=== PATIENT | female | born 1990 | race Caucasian/White ===

== ENCOUNTER 2016-06-05 07:29 | Inpatient (IN) | payer OTHER ==
[2016-06-05] MEDS ORDERED: Lidocaine 1% MPF* 2 ML VIAL ONE (09:03)
[2016-06-05 09:58] LABS: Hematocrit 33 % (35-47); Hemoglobin 10.9 g/dl (12.0-16.0); Mean Corpuscular HGB Conc 33 g/dl (31-36); Mean Corpuscular Hemoglobin 28 pg (27-31); Mean Corpuscular Volume 86 fL (80-97); Mean Platelet Volume 11 um3 (7.4-10.4); Red Blood Count 3.85 10^6/ul (4.0-5.4); Red Cell Distribution Width 13 % (10.5-15); White Blood Count 7.6 10^3/ul (3.5-10.8)
[2016-06-05] MEDS ORDERED: OBEPIDURAL* 250 ML ONE (13:42)
[2016-06-05] MEDS ORDERED: fentaNYL* 50 MCG/ML 2 ML VIAL (100 MCG VIAL) ONE (13:42)
[2016-06-05] MEDS ORDERED: Phenylephrine IV* 40 MCG/ML 10 ML SYRINGE IV PUSH PRN ×2 (14:17)
[2016-06-05] MEDS ORDERED: Sodium Citrate/Citric Acid* 15 ML UDC PO PRN (14:17)
[2016-06-05] MEDS ORDERED: Famotidine TAB* 20 MG PO PRN (14:17)
[2016-06-05] MEDS ORDERED: OBEPIDURAL* 250 ML EPIDURAL SCH (15:00)
[2016-06-05] MEDS ORDERED: Oxytocin in LR* 20 UNITS/1,000 ML BAG IVPB ONE (15:58)
[2016-06-05] MEDS ORDERED: Dibucaine 1% 28.35 GM TUBE PR PRN (16:20)
[2016-06-05] MEDS ORDERED: Glycerin ADULT SUPP PR PRN (16:20)
[2016-06-05] MEDS ORDERED: Acetaminophen TAB* 325 MG PO PRN (16:20)
[2016-06-05] MEDS ORDERED: Witch Hazel PAD* JAR TOPICAL PRN (16:20)
[2016-06-05] MEDS ORDERED: Oxytocin in LR* 20 UNITS/1,000 ML BAG IVPB SCH (17:00)
[2016-06-05] MEDS ORDERED: Simethicone TAB* 80 MG TAB.CHEW PO SCH (17:30)
[2016-06-05] MEDS: Ibuprofen TAB* 600 MG PO PRN (18:28)
[2016-06-05] MEDS: Docusate CAP* 100 MG PO SCH (19:52)
[2016-06-06] MEDS: Ibuprofen TAB* 600 MG PO PRN ×3 (00:49→20:09)
[2016-06-06 07:28] LABS: Hematocrit 28 % (35-47); Hemoglobin 9.3 g/dl (12.0-16.0); Mean Corpuscular HGB Conc 33 g/dl (31-36); Mean Corpuscular Hemoglobin 28 pg (27-31); Mean Corpuscular Volume 86 fL (80-97); Mean Platelet Volume 12 um3 (7.4-10.4); Red Cell Distribution Width 14 % (10.5-15); White Blood Count 8.4 10^3/ul (3.5-10.8)
[2016-06-06] MEDS: Ferrous Gluconate TAB* 324 MG TAB PO SCH ×2 (09:32→20:09)
[2016-06-06] MEDS: Docusate CAP* 100 MG PO SCH ×3 (09:32→20:09)
[2016-06-06] MEDS ORDERED: Tetan/Diph/Pertus SYR(Tdap)* 0.5 ML SYR(BOOSTRIX) use SYR IM ONE (14:54)
[2016-06-07] MEDS: Ferrous Gluconate TAB* 324 MG TAB PO SCH (09:02)
[2016-06-07] MEDS: Docusate CAP* 100 MG PO SCH (09:02)
[2016-06-07 09:36] VITALS: BP 137/68
== END 2016-06-07 10:47 | disposition home or self-care (01) | DRG 560 ==
LOC: MCHOBOUT 07:29 → MCHOB 08:40
PROVIDERS: ADMIT Midwife; ATTEND Midwife
PROC: 10E0XZZ Delivery of Products of Conception, External Approach (ICD-10-PCS; principal; 2016-06-05)
PROC: 10907ZC Drainage of Amniotic Fluid, Therapeutic from Products of Conception, Via Natural or Artificial Opening (ICD-10-PCS; 2016-06-05)
PROC: 4A1HXCZ Monitoring of Products of Conception, Cardiac Rate, External Approach (ICD-10-PCS; 2016-06-05)
PROC: 0HQ9XZZ Repair Perineum Skin, External Approach (ICD-10-PCS; 2016-06-05)
DX: O99.214 Obesity complicating childbirth (principal); Z68.41 Body mass index [BMI] 40.0-44.9, adult; O71.82 Other specified trauma to perineum and vulva; O99.02 Anemia complicating childbirth; Z3A.38 38 weeks gestation of pregnancy; Z37.0 Single live birth; O75.89 Other specified complications of labor and delivery; G47.30 Sleep apnea, unspecified
CPT/HCPCS: 36415; 85025; 86850; 86900; 86901; 90715; A9270-GY; J3010

== ENCOUNTER 2016-06-18 08:14 | Emergency (ER) | payer OTHER ==
[2016-06-18 08:24] VITALS: BP 133/69
--- NOTE | 2016-06-19 17:59 | UC ---
tawny Solitario Timothy, scribed for Dolores Rahman MD on 06/18/16 at 0834 . Epistaxis Nasal HPI - HPI Summary HPI Summary: Tess Sweet is a 25 yo female presenting to [facility] with 5/10 sinus pressure and ache for the past 2 weeks. She also claims bilateral ear pain for the past 2 weeks with some hearing loss and pain in the right side of her face more recently. She states she is also experiencing productive cough. She denies fever , chills, n/v. Pt is 2 weeks post normal vaginal delivery, and is currently breast feeding. She states there has been exposure to RSV in her home. Her MHx includes exercise induced asthma, and former tobacco use. - History of Current Complaint Chief Complaint: UCRespiratory Stated Complaint: SINUS ISSUE Time Seen by Provider: 06/18/16 08:55 Hx Obtained From: Patient Hx Last Menstrual Period: 2 weeks post Onset/Duration: Gradual Onset, Lasting Weeks, Still Present Timing: Constant Severity Initially: Moderate Severity Currently: Moderate Pain Intensity: 5 Pain Scale Used: 0-10 Numeric Aggravating Factor(s): Nothing Alleviating Factor(s): Nothing Associated Signs And Symptoms: Positive: Sinus Pain Similar Episode/Dx as:: sinusitis - Allergies/Home Medications Allergies/Adverse Reactions: Allergies Allergy/AdvReac Type Severity Reaction Status Date / Time Oxycodone [From Percocet] Allergy Hives Verified 06/18/16 08:23 Penicillins [PCN] Allergy Hives Verified 06/18/16 08:23 PMH/Surg Hx/FS Hx/Imm Hx Respiratory History Of: Reports: Asthma - exercise induced GI/ History Of: Reports: Gall Bladder Disease - lap kassi. Neurological History Of: Denies: TIA, CVA, Dementia, Seizures, Migraine Psychological History Of: Reports: Anxiety, Depression - Surgical History Surgical History: Yes Surgery Procedure, Year, and Place: 2010-[facility]assi[place] [place] - Family History Known Family History: Positive: Cardiac Disease, Hypertension, Respiratory Disease, Other - ovarian CA - Social History Lives: With Family Alcohol Use: None Substance Use Type: None Smoking Status (MU): Former Smoker Type: Cigarettes Amount Used/How Often: 1/2 PPD Have You Smoked in the Last Year: Yes When Did the Patient Quit Smoking/Using Tobacco: 09/2013 Household Exposure Type: Cigarettes - Immunization History Most Recent Influenza Vaccination: 01/02/16 Most Recent Tetanus Shot: unsure Most Recent Pneumonia Vaccination: unknown Review of Systems Constitutional: Negative Skin: Negative Eyes: Negative ENT: Ear Ache - bilateral, Other - sinus pain/pressure Respiratory: Cough Cardiovascular: Negative Gastrointestinal: Negative Genitourinary: Negative Motor: Negative Neurovascular: Negative Musculoskeletal: Negative Neurological: Headache Psychological: Negative All Other Systems Reviewed And Are Negative: Yes Physical Exam Triage Information Reviewed: Yes Appearance: No Pain Distress, Well-Nourished, Ill-Appearing Vital Signs: Initial Vital Signs Temp 97 F 06/18/16 08:19 Pulse 86 06/18/16 08:19 Resp 16 06/18/16 08:19 BP 133/69 06/18/16 08:19 Pulse Ox 99 06/18/16 08:19 Vital Signs Reviewed: Yes Eyes: Positive: Conjunctiva Clear ENT: Positive: Hearing grossly normal, TM red - left. Negative: TMs normal - right is retracted Neck: Positive: Supple, Nontender Respiratory: Positive: Chest non-tender, Lungs clear, Normal breath sounds, No respiratory distress Cardiovascular: Positive: RRR, No Murmur, Pulses Normal, Brisk Capillary Refill Musculoskeletal: Positive: Strength Intact, ROM Intact Neurological: Positive: Alert, Muscle Tone Normal Psychological Exam: Normal Skin Exam: Normal Re-Evaluation - Re-Evaluation First Eval Re-Evaluation Time: 09:03 Change: Unchanged Comment: explained which antibiotics and OTC medications will be safe for Tx given that Pt is currently breast feeding her child. Epistaxis Nasal Course/Dx - Course Course Of Treatment: Tess Sweet is a 25 yo female [address] [facility] with sinus pain and pressure. After clinical examination, she will be discharged home with left otitis media and sinusitis as well as appropriate instructions. - Differential Dx/Diagnosis Differential Diagnosis/HQI/PQRI: Sinusitis, Other - OM, URI Provider Diagnoses: left otitis media. sinusitis Discharge - Discharge Plan Condition: Stable Disposition: HOME Prescriptions: Azithromycin TAB* [Zithromax TAB (Z-RJ) 250 mg #6 tabs] 2 tab PO .TODAY, THEN 1 DAILY #1 rj Patient Education Materials: Otitis Media (ED), Sinusitis (ED) Referrals: [facility] [place] [facility]IAN REFERRAL [Outside] - 2 Days Additional Instructions: Please follow up with the primary care physician provided regarding your visit to urgent care today. Return to urgent care or the emergency department with any new or recurring symptoms. The documentation as recorded by the tawny ayala Timothy accurately reflects the service I personally performed and the decisions made by , Dolores Rahman MD.
== END 2016-06-18 09:15 | disposition home or self-care (01) ==
LOC: UCEAST 08:14
DX: J32.9 Chronic sinusitis, unspecified (principal); H66.92 Otitis media, unspecified, left ear; Z90.49 Acquired absence of other specified parts of digestive tract; Z88.5 Allergy status to narcotic agent; Z88.0 Allergy status to penicillin; Z87.891 Personal history of nicotine dependence
CPT/HCPCS: 99212; G0463

== ENCOUNTER 2016-10-14 07:39 | Emergency (ER) | payer SELFPAY ==
[2016-10-14 07:45] VITALS: BP 116/70
--- NOTE | 2016-10-14 08:13 | UC ---
Respiratory Complaint HPI - HPI Summary HPI Summary: 4 DAYS OF COUGH AND CONGESTION. YESTERDAY DEVELOPED ST AND PAIN WITH SWALLOWING. REPORTS FEVER 103.8 2 DAYS AGO. - History of Current Complaint Chief Complaint: UCRespiratory Stated Complaint: SORE THROAT Time Seen by Provider: 10/14/16 07:59 Hx Obtained From: Patient Hx Last Menstrual Period: 09/19/16 Onset/Duration: Gradual Onset, Lasting Days, Still Present Timing: Constant Severity Initially: Moderate Severity Currently: Moderate Pain Intensity: 7 Pain Scale Used: 0-10 Numeric Aggravating Factors: Nothing Alleviating Factors: Nothing Associated Signs And Symptoms: Positive: Fever, Chills, URI, Nasal Congestion - Allergies/Home Medications Allergies/Adverse Reactions: Allergies Allergy/AdvReac Type Severity Reaction Status Date / Time Oxycodone [From Percocet] Allergy Hives Verified 06/18/16 08:23 Penicillins [PCN] Allergy Hives Verified 06/18/16 08:23 PMH/Surg Hx/FS Hx/Imm Hx Respiratory History: Asthma Other History Of: Negative For: HIV, Hepatitis B, Hepatitis C, Anticoagulant Therapy - Surgical History Surgical History: Yes Surgery Procedure, Year, and Place: 2010- [facility] [place] - Family History Known Family History: Positive: Cardiac Disease, Hypertension, Respiratory Disease, Other - ovarian CA - Social History Alcohol Use: None Substance Use Type: None Smoking Status (MU): Former Smoker Type: Cigarettes Amount Used/How Often: 1/2 PPD Have You Smoked in the Last Year: Yes When Did the Patient Quit Smoking/Using Tobacco: 09/2013 Household Exposure Type: Cigarettes - Immunization History Most Recent Influenza Vaccination: 01/02/16 Most Recent Tetanus Shot: unsure Most Recent Pneumonia Vaccination: unknown Review of Systems Constitutional: Fever, Chills, Fatigue ENT: Sore Throat, Nasal Discharge Respiratory: Negative Cardiovascular: Negative Gastrointestinal: Negative All Other Systems Reviewed And Are Negative: Yes Physical Exam Triage Information Reviewed: Yes Appearance: Well-Appearing, No Pain Distress, Well-Nourished Vital Signs: Initial Vital Signs Temp 100 F 10/14/16 07:42 Pulse 98 10/14/16 07:42 Resp 18 10/14/16 07:42 BP 116/70 10/14/16 07:42 Pulse Ox 99 10/14/16 07:42 Vital Signs Reviewed: Yes Eyes: Positive: Conjunctiva Clear ENT: Positive: Hearing grossly normal, Pharyngeal erythema, TMs normal, Tonsillar swelling - LEFT > RIGHT, Tonsillar exudate, Muffled/hoarse voice Neck: Positive: Supple, Tenderness @ - SPFL CERVICAL LAD, Enlarged Nodes @ - SPFL CERVICAL LAD Respiratory Exam: Normal Cardiovascular Exam: Normal Abdomen Description: Positive: Soft Musculoskeletal: Positive: No Edema Neurological: Positive: Alert Psychological: Positive: Age Appropriate Behavior Skin: Negative: rashes UC Diagnostic Evaluation - Laboratory O2 Sat by Pulse Oximetry: 99 Diagnostic Studies Comment: RAPID STREP NEGATIVE Respiratory Course/Dx - Differential Dx/Diagnosis Provider Diagnoses: ACUTE TONSILLITIS Discharge - Discharge Plan Condition: Stable Disposition: HOME Prescriptions: Clindamycin Cap(NF) [Cleocin 300 mg Cap(NF)] 300 mg PO Q6H #40 cap predniSONE TAB* [Deltasone TAB*] 40 mg PO DAILY #6 tab Patient Education Materials: Tonsillitis (ED) Referrals: No Primary Care Phys,NOPCP [Primary Care Provider] - Additional Instructions: RAPID STREP NEGATIVE. GIVEN YOUR CLINICAL PRESENTATION AND CONCERN FOR DEVELOPING PERITONSILLAR ABCESS/CELLULITIS WILL COVER WITH ABX. RETURN FOR RE-EVALUATION IF YOU ARE NOT IMPROVING EXPECTED. CALL THE NUMBER BELOW FOR ASSISTANCE IN ESTABLISHING WITH A PCP An additional resource available to assist in finding the appropriate physician for your health care needs is the [facility] ([facility]). You may contact them by calling [phone].
== END 2016-10-14 09:06 | disposition home or self-care (01) ==
LOC: UCEAST 07:39
DX: J03.90 Acute tonsillitis, unspecified (principal); J45.909 Unspecified asthma, uncomplicated; Z87.891 Personal history of nicotine dependence
CPT/HCPCS: 87651; 99212; G0463

== ENCOUNTER 2017-01-03 08:53 | Emergency (ER) | payer OTHER ==
[2017-01-03 09:17] VITALS: BP 121/69
--- NOTE | 2017-01-03 10:03 | UC ---
Throat Pain/Nasal Joselo HPI - HPI Summary HPI Summary: 26 yo female with sore throat since 2 AM feels feverish has myalgias exposed to 5 family members and friends who are being rxed for strep - History of Current Complaint Chief Complaint: UCGeneralIllness Stated Complaint: SORE THROAT Time Seen by Provider: 01/03/17 09:49 Hx Obtained From: Patient Hx Last Menstrual Period: 12/19/16 Onset/Duration: Sudden Onset, Lasting Hours Severity: Moderate Pain Intensity: 4 Pain Scale Used: 0-10 Numeric Cough: None Associated Signs & Symptoms: Positive: Fever - paloma - Allergies/Home Medications Allergies/Adverse Reactions: Allergies Allergy/AdvReac Type Severity Reaction Status Date / Time Oxycodone [From Percocet] Allergy Hives Verified 01/03/17 09:10 Penicillins [PCN] Allergy Hives Verified 01/03/17 09:10 PMH/Surg Hx/FS Hx/Imm Hx Previously Healthy: Yes Other History Of: Negative For: HIV, Hepatitis B, Hepatitis C, Anticoagulant Therapy - Surgical History Surgical History: Yes Surgery Procedure, Year, and Place: 2010-[facility] - Family History Known Family History: Positive: Cardiac Disease, Hypertension, Diabetes, Respiratory Disease, Other - ovarian CA - Social History Alcohol Use: Occasionally Substance Use Type: None Smoking Status (MU): Former Smoker Type: Cigarettes Amount Used/How Often: 1/2 PPD Have You Smoked in the Last Year: Yes When Did the Patient Quit Smoking/Using Tobacco: 09/2013 Household Exposure Type: Cigarettes - Immunization History Most Recent Influenza Vaccination: 01/02/16 Most Recent Tetanus Shot: unsure Most Recent Pneumonia Vaccination: unknown Review of Systems Constitutional: Fever - paloma Skin: Negative Eyes: Negative ENT: Sore Throat Respiratory: Negative Cardiovascular: Negative Gastrointestinal: Negative Genitourinary: Negative Motor: Negative Neurovascular: Negative Musculoskeletal: Myalgia Neurological: Headache Psychological: Negative Is Patient Immunocompromised?: No All Other Systems Reviewed And Are Negative: Yes Physical Exam Triage Information Reviewed: Yes Appearance: Well-Appearing, No Pain Distress, Well-Nourished Vital Signs: Initial Vital Signs Temp 98.1 F 01/03/17 09:11 Pulse 104 01/03/17 09:11 Resp 18 01/03/17 09:11 BP 121/69 01/03/17 09:11 Pulse Ox 100 01/03/17 09:11 Vital Signs Reviewed: Yes Eyes: Positive: Conjunctiva Clear ENT: Positive: Hearing grossly normal, Pharyngeal erythema, TMs normal, Tonsillar swelling, Tonsillar exudate, Other: - midline line uvula. Negative: Nasal congestion, Nasal drainage, Trismus, Muffled/hoarse voice Neck: Positive: Supple, Nontender Respiratory: Positive: Lungs clear, Normal breath sounds, No respiratory distress, No accessory muscle use Cardiovascular: Positive: RRR, No Murmur Musculoskeletal: Positive: ROM Intact, No Edema Neurological: Positive: Alert Psychological Exam: Normal Skin Exam: Normal Throat Pain/Nasal Course/Dx - Differential Dx/Diagnosis Provider Diagnoses: acute exudative tonsillitis Discharge - Discharge Plan Condition: Stable Disposition: HOME Prescriptions: Cephalexin CAP* [Keflex CAP*] 500 mg PO BID #20 cap Patient Education Materials: Tonsillitis (ED) Referrals: No Primary Care Phys,NOPCP [Primary Care Provider] - Additional Instructions: Given your history of exposure to multiple family members and children with strep I suspect you have it as well recheck in 3 days if not better recheck for new or worsening symptoms
== END 2017-01-03 10:10 | disposition home or self-care (01) ==
LOC: UCEAST 08:53
DX: J03.90 Acute tonsillitis, unspecified (principal); Z88.6 Allergy status to analgesic agent; Z88.0 Allergy status to penicillin; Z87.891 Personal history of nicotine dependence
CPT/HCPCS: 99212; G0463

== ENCOUNTER 2017-03-25 16:56 | Emergency (ER) | payer OTHER ==
[2017-03-25 18:19] LABS: Hematocrit 38 % (35-47); Hemoglobin 12.7 g/dl (12.0-16.0); Mean Corpuscular HGB Conc 34 g/dl (31-36); Mean Corpuscular Hemoglobin 31 pg (27-31); Mean Corpuscular Volume 92 fL (80-97); Mean Platelet Volume 9 um3 (7.4-10.4); Red Cell Distribution Width 13 % (10.5-15); White Blood Count 7.6 10^3/ul (3.5-10.8)
[2017-03-25 18:27] LABS: Urine Bacteria Absent (Absent); Urine Bilirubin Negative (Negative); Urine Glucose Negative (Negative); Urine Nitrite Negative (Negative)
[2017-03-25 18:34] LABS: Albumin 4.3 g/dL (3.2-5.2); BUN/Creatinine Ratio 8.2 (8-20); EGFR African American 124.9 (>60); EGFR Non-African American 97.1 (>60); Globulin 2.7 g/dL (2-4); Potassium 3.6 mmol/L (3.5-5.0); Total Bilirubin 0.3 mg/dL (0.2-1.0)
--- NOTE | 2017-03-25 19:13 | ED ---
GI/ HPI - HPI Summary HPI Summary: 26F presents with vaginal spotting today. LMP feb 10. She believes she is 5 week . She denies any abdominal pain. She denies any dizziness or palpitations. had three at home test pos. no fever, n/v/d. no dysuria. no flank pain. no vaginal discharge. two abortions where medical. . - History of Current Complaint Chief Complaint: EDGeneral Time Seen by Provider: 03/25/17 17:28 Stated Complaint: 6 WKS PREG/SPOTTING Hx Last Menstrual Period: 12/19/16 Pain Intensity: 0 - Allergy/Home Medications Allergies/Adverse Reactions: Allergies Allergy/AdvReac Type Severity Reaction Status Date / Time Oxycodone [From Percocet] Allergy Hives Verified 01/03/17 09:10 Penicillins [PCN] Allergy Hives Verified 01/03/17 09:10 PMH/Surg Hx/FS Hx/Imm Hx Endocrine/Hematology History: Denies: Hx Anticoagulant Therapy, Hx Diabetes, Hx Thyroid Disease Cardiovascular History: Denies: Hx Congestive Heart Failure, Hx Deep Vein Thrombosis, Hx Hypertension , Hx Myocardial Infarction, Hx Pacemaker/ICD Respiratory History: Reports: Hx Asthma - exercise induced, Hx Sleep Apnea - evaluation 12/2012, Other Respiratory Problems/Disorders - smoker, chronic congestion Denies: Hx Chronic Obstructive Pulmonary Disease (COPD), Hx Lung Cancer, Hx Pneumonia, Hx Pulmonary Embolism GI History: Reports: Hx Gall Bladder Disease - lap kassi. Denies: Hx Gastrointestinal Bleed, Hx Ulcer, Hx Urosepsis, Other GI Disorders History: Denies: Hx Kidney Stones, Hx Renal Disease, Other Problems/Disorders Neurological History: Denies: Hx Dementia, Hx Migraine, Hx Seizures, Hx Transient Ischemic Attacks (TIA) Psychiatric History: Reports: Hx Anxiety, Hx Depression Denies: Hx Schizophrenia, Hx Bipolar Disorder - Surgical History Surgery Procedure, Year, and Place: 2010-lap kassi-[facility] [place], [place] - Immunization History Date of Tetanus Vaccine: unsure Date of Influenza Vaccine: when she was preg Infectious Disease History: No Infectious Disease History: Denies: Hx Clostridium Difficile, Hx Hepatitis, Hx Human Immunodeficiency Virus (HIV), Hx of Known/Suspected MRSA, Hx Shingles, Hx Tuberculosis, Hx Known/ Suspected VRE, Hx Known/Suspected VRSA, History Other Infectious Disease, Traveled Outside the [place] in Last 30 Days - Family History Known Family History: Positive: Cardiac Disease, Hypertension, Diabetes, Respiratory Disease, Other - ovarian CA - Social History Alcohol Use: None Substance Use Type: Reports: None Smoking Status (MU): Former Smoker Type: Cigarettes Amount Used/How Often: 1/2 PPD Have You Smoked in the Last Year: Yes Review of Systems Negative: Fever Negative: Chest Pain Negative: Shortness Of Breath Positive: Other - vaginal bleeding. Negative: Abdominal Pain, Vomiting, Diarrhea, Nausea All Other Systems Reviewed And Are Negative: Yes Physical Exam Triage Information Reviewed: Yes Vital Signs On Initial Exam: Initial Vitals Temp Pulse Resp BP Pulse Ox 97.5 F 78 17 144/73 100 03/25/17 17:22 03/25/17 17:22 03/25/17 17:22 03/25/17 17:22 03/25/17 17:22 Vital Signs Reviewed: Yes Appearance: Positive: Well-Appearing Skin: Positive: Warm, Dry Head/Face: Positive: Normal Head/Face Inspection Eyes: Positive: Normal, Conjunctiva Clear Respiratory/Lung Sounds: Positive: Clear to Auscultation, Breath Sounds Present Cardiovascular: Positive: Normal, RRR Abdomen Description: Positive: Nontender, Soft Bowel Sounds: Positive: Present Musculoskeletal: Positive: Normal Neurological: Positive: Normal Psychiatric: Positive: Normal - Xenia Coma Scale Coma Scale Total: 15 Diagnostics - Vital Signs Vital Signs Temp Pulse Resp BP Pulse Ox 03/25/17 17:22 97.5 F 78 17 144/73 100 - Laboratory Lab Results: Lab Results 03/25/17 03/25/17 03/25/17 Range/Units 17:55 18:05 18:05 WBC (3.5-10.8) 10^3/ul RBC (4.0-5.4) 10^6/ul Hgb (12.0-16.0) g/dl Hct (35-47) % MCV (80-97) fL MCH (27-31) pg MCHC (31-36) g/dl RDW (10.5-15) % Plt Count (150-450) 10^3/ul MPV (7.4-10.4) um3 Neut % (Auto) (38-83) % Lymph % (Auto) (25-47) % Mcduffie % (Auto) (1-9) % Eos % (Auto) (0-6) % Baso % (Auto) (0-2) % Absolute Neuts (auto) (1.5-7.7) 10^3/ul Absolute Lymphs (auto) (1.0-4.8) 10^3/ul Absolute Monos (auto) (0-0.8) 10^3/ul Absolute Eos (auto) (0-0.6) 10^3/ul Absolute Basos (auto) (0-0.2) 10^3/ul Absolute Nucleated RBC 10^3/ul Nucleated RBC % INR (Anticoag Therapy) 0.86 (0.77-1.02) APTT 34.7 (26.0-36.3) seconds Sodium (133-145) mmol/L Potassium (3.5-5.0) mmol/L Chloride (101-111) mmol/L Carbon Dioxide (22-32) mmol/L Anion Gap (2-11) mmol/L BUN (6-24) mg/dL Creatinine (0.51-0.95) mg/dL Est GFR ( Amer) (>60) Est GFR (Non-Af Amer) (>60) BUN/Creatinine Ratio (8-20) Glucose (70-100) mg/dL Calcium (8.6-10.3) mg/dL Total Bilirubin (0.2-1.0) mg/dL AST (13-39) U/L ALT (7-52) U/L Alkaline Phosphatase (34-104) U/L Total Protein (6.4-8.9) g/dL Albumin (3.2-5.2) g/dL Globulin (2-4) g/dL Albumin/Globulin Ratio (1-3) Beta HCG, Quant mIU/mL Urine Color Yellow Urine Appearance Cloudy Urine pH 5.0 (5-9) Ur Specific [place] 1.023 (1.010-1.030) Urine Protein Negative (Negative) Urine Ketones Negative (Negative) Urine Blood Negative (Negative) Urine Nitrate Negative (Negative) Urine Bilirubin Negative (Negative) Urine Urobilinogen Negative (Negative) Ur Leukocyte Esterase Trace H (Negative) Urine WBC (Auto) Trace(0-5/hpf) (Absent) Urine RBC (Auto) Absent (Absent) Ur Squamous Epith Cells Present H (Absent) Urine Bacteria Absent (Absent) Urine Glucose Negative (Negative) Blood Type O Positive 03/25/17 03/25/17 Range/Units 18:05 18:05 WBC 7.6 (3.5-10.8) 10^3/ul RBC 4.10 (4.0-5.4) 10^6/ul Hgb 12.7 (12.0-16.0) g/dl Hct 38 (35-47) % MCV 92 (80-97) fL MCH 31 (27-31) pg MCHC 34 (31-36) g/dl RDW 13 (10.5-15) % Plt Count 212 (150-450) 10^3/ul MPV 9 (7.4-10.4) um3 Neut % (Auto) 58.5 (38-83) % Lymph % (Auto) 29.5 (25-47) % Mcduffie % (Auto) 6.5 (1-9) % Eos % (Auto) 4.7 (0-6) % Baso % (Auto) 0.8 (0-2) % Absolute Neuts (auto) 4.5 (1.5-7.7) 10^3/ul Absolute Lymphs (auto) 2.2 (1.0-4.8) 10^3/ul Absolute Monos (auto) 0.5 (0-0.8) 10^3/ul Absolute Eos (auto) 0.4 (0-0.6) 10^3/ul Absolute Basos (auto) 0.1 (0-0.2) 10^3/ul Absolute Nucleated RBC 0 10^3/ul Nucleated RBC % 0.1 INR (Anticoag Therapy) (0.77-1.02) APTT (26.0-36.3) seconds Sodium 136 (133-145) mmol/L Potassium 3.6 (3.5-5.0) mmol/L Chloride 105 (101-111) mmol/L Carbon Dioxide 26 (22-32) mmol/L Anion Gap 5 (2-11) mmol/L BUN 6 (6-24) mg/dL Creatinine 0.73 (0.51-0.95) mg/dL Est GFR ( Amer) 124.9 (>60) Est GFR (Non-Af Amer) 97.1 (>60) BUN/Creatinine Ratio 8.2 (8-20) Glucose 86 (70-100) mg/dL Calcium 9.0 (8.6-10.3) mg/dL Total Bilirubin 0.30 (0.2-1.0) mg/dL AST 15 (13-39) U/L ALT 12 (7-52) U/L Alkaline Phosphatase 64 (34-104) U/L Total Protein 7.0 (6.4-8.9) g/dL Albumin 4.3 (3.2-5.2) g/dL Globulin 2.7 (2-4) g/dL Albumin/Globulin Ratio 1.6 (1-3) Beta HCG, Quant 2037.00 mIU/mL Urine Color Urine Appearance Urine pH (5-9) Ur Specific [place] (1.010-1.030) Urine Protein (Negative) Urine Ketones (Negative) Urine Blood (Negative) Urine Nitrate (Negative) Urine Bilirubin (Negative) Urine Urobilinogen (Negative) Ur Leukocyte Esterase (Negative) Urine WBC (Auto) (Absent) Urine RBC (Auto) (Absent) Ur Squamous Epith Cells (Absent) Urine Bacteria (Absent) Urine Glucose (Negative) Blood Type Result Diagrams: 03/25/17 18:05 03/25/17 18:05 Lab Statement: Any lab studies that have been ordered have been reviewed, and results considered in the medical decision making process. GIGU Course/Dx - Course Course Of Treatment: 26F presents with vaginal spotting today. LMP oct 22. She believes she is 5 week . She denies any abdominal pain. She denies any dizziness or palpitations. had three at home test pos. no fever, n/v/d. no dysuria. no flank pain. no vaginal discharge. two abortions where medical. . nontender abdomen. hcg only 1999 so can not see anything u/ s. will have follow up in two days for repeat labs as could be miscarriage or early . patient understand and agrees with plan. - Diagnoses Differential Diagnoses - Female: Ectopic , , Urinary Tract Infection, Other - threatened Provider Diagnoses: Vaginal bleeding affecting early Discharge - Discharge Plan Condition: Good Disposition: HOME Patient Education Materials: Threatened Miscarriage (ED) Referrals: Tonia Dykes MD [Primary Care Provider] - Mehrdad Goodman MD [Medical Doctor] - Additional Instructions: The education provided is for your information. You may or may not have a miscarriage at this point. Follow up with OBGYN as will need repeat HCG level drawn to trend , have lab work done in 2 days Return to ED if develop severe abdominal pain, fever, severe bleeding with symptoms such as lightheadedness or any new or worsening symptoms
[2017-03-25 19:34] VITALS: BP 130/64
== END 2017-03-25 19:33 | disposition home or self-care (01) ==
LOC: ED 16:56
DX: O20.9 Hemorrhage in early pregnancy, unspecified (principal); Z3A.01 Less than 8 weeks gestation of pregnancy; Z87.891 Personal history of nicotine dependence
CPT/HCPCS: 36415; 80053; 81003; 81015; 84702; 85025; 85610; 85730; 86900; 86901; 87086; 87088; 99282

== ENCOUNTER 2017-04-07 10:25 | Emergency (ER) | payer OTHER ==
[2017-04-07] MEDS ORDERED: Acetaminophen TAB* 325 MG PO ONE (13:08)
[2017-04-07] MEDS ORDERED: Cyclobenzaprine TAB* 10 MG PO ONE (13:08)
--- NOTE | 2017-04-07 13:09 | ED ---
Neck Pain - History of Current Complaint Chief Complaint: EDNeckComplaint Stated Complaint: NECK PAIN Time Seen by Provider: 04/07/17 10:46 Hx Last Menstrual Period: 12/19/16 Pain Intensity: 10 - Allergies/Home Medications Allergies/Adverse Reactions: Allergies Allergy/AdvReac Type Severity Reaction Status Date / Time Oxycodone [From Percocet] Allergy Hives Verified 01/03/17 09:10 Penicillins [PCN] Allergy Hives Verified 01/03/17 09:10 PMH/Surg Hx/FS Hx/Imm Hx Endocrine/Hematology History: Denies: Hx Anticoagulant Therapy, Hx Diabetes, Hx Thyroid Disease Cardiovascular History: Denies: Hx Congestive Heart Failure, Hx Deep Vein Thrombosis, Hx Hypertension , Hx Myocardial Infarction, Hx Pacemaker/ICD Respiratory History: Reports: Hx Asthma - exercise induced, Hx Sleep Apnea - evaluation 12/2012, Other Respiratory Problems/Disorders - smoker, chronic congestion Denies: Hx Chronic Obstructive Pulmonary Disease (COPD), Hx Lung Cancer, Hx Pneumonia, Hx Pulmonary Embolism GI History: Reports: Hx Gall Bladder Disease - lap kassi. Denies: Hx Gastrointestinal Bleed, Hx Ulcer, Hx Urosepsis, Other GI Disorders History: Denies: Hx Kidney Stones, Hx Renal Disease, Other Problems/Disorders Neurological History: Denies: Hx Dementia, Hx Migraine, Hx Seizures, Hx Transient Ischemic Attacks (TIA) Psychiatric History: Reports: Hx Anxiety, Hx Depression Denies: Hx Schizophrenia, Hx Bipolar Disorder - Surgical History Surgery Procedure, Year, and Place: 2010[facility] [place] - Immunization History Date of Tetanus Vaccine: unsure Date of Influenza Vaccine: 02/2017 Immunizations Up to Date: Yes Infectious Disease History: No Infectious Disease History: Denies: Hx Clostridium Difficile, Hx Hepatitis, Hx Human Immunodeficiency Virus (HIV), Hx of Known/Suspected MRSA, Hx Shingles, Hx Tuberculosis, Hx Known/ Suspected VRE, Hx Known/Suspected VRSA, History Other Infectious Disease, Traveled Outside the [place] in Last 30 Days - Family History Known Family History: Positive: Cardiac Disease, Hypertension, Diabetes, Respiratory Disease, Other - ovarian CA - Social History Alcohol Use: None Substance Use Type: Reports: None Smoking Status (MU): Former Smoker Type: Cigarettes Amount Used/How Often: 1/2 PPD Have You Smoked in the Last Year: Yes Physical Exam Vital Signs On Initial Exam: Initial Vitals Temp Pulse Resp BP Pulse Ox 97.7 F 76 16 144/92 100 04/07/17 10:27 04/07/17 10:27 04/07/17 10:27 04/07/17 10:27 04/07/17 10:27 - [place] Coma Scale Coma Scale Total: 15 Diagnostics - Vital Signs Vital Signs Temp Pulse Resp BP Pulse Ox 04/07/17 10:27 97.7 F 76 16 144/92 100 - Laboratory Lab Statement: Any lab studies that have been ordered have been reviewed, and results considered in the medical decision making process. Neck Course/Dx - Diagnoses Differential Dx/HQI/PQRI: Positive: Strain, Torticollis Provider Diagnoses: Cervical strain, acute Discharge - Discharge Plan Condition: Stable Disposition: HOME Patient Education Materials: Cervical Strain (ED) Referrals: Tonia Dykes MD [Primary Care Provider] - Additional Instructions: Continue taking tylenol. Heating pad, massage and rest. Wear collar if it gives relief. Follow up with PCP. Any new or worsening symptoms please seek medical attention promptly.
[2017-04-07 13:21] VITALS: BP 117/85
--- OUTSIDE RECORDS SUMMARY | 2017-04-08 11:48 | XMS REPORT ---
:1990 External Reference #:[id number] Author Organization [facility] Address [address] [address] Phone [phone] Care Team Providers Name Role Phone Tonia Dykes MD Primary Care Physician Unavailable Payers Type Date Identification Numbers Payment Provider Subscriber Commercial Effective: Policy Number: [id number] Total Care/Mcintyre Romain Sweet 2011 [facility] PayID: [id number] [address] [address] [place] [address] Problems Date Description Provider Status Onset: 01/16/2013 Obesity Esmer Ruffin M.D. Active Onset: 01/16/2013 Anxiety state Re Cruz M.D. Active Onset: 03/12/2017 Exercise-induced asthma Dar Everett M.D.,FACP Active Onset: 03/12/2017 Ex-smoker Dar Everett M.D.,FACP Active Onset: 03/12/2017 Gestational diabetes mellitus Dar Everett M.D.,FACP Active Note: h/o Onset: 03/12/2017 Obstructive sleep apnea Dar Everett M.D.,FACP Active syndrome Onset: 01/16/2013 Tobacco user Esmer Ruffin M.D. Inactive Inactive: 03/12/2017 Onset: 01/16/2013 Sleep disorder Esmer Ruffin M.D. Inactive Inactive: 03/12/2017 Onset: 07/25/2011 test positive Re Cruz M.D. Resolved Resolved: 12/12/2012 Family History Date Family Member(s) Problem(s) Comments Children 1 Social History Type Date Description Comments Education Highest level completed, 8th 8th grade reading level, grade left school at 16 when asked to repeat 9th grade Education 2014 Ged Education Enrolled in 3 taking courses for nursing Marital Status ETOH Use Denies alcohol use Recreational Drug Use Denies Drug Use Smoking Patient is a current smoker, smokes every day Smoking pack a day Daily Caffeine and sodas Daily Caffeine drinks root beer Exercise Type/Frequency Does not exercise General Hx Text Allergies, Adverse Reactions, Alerts Date Description Reaction Status Severity Comments 03/22/2011 Penicillin Contact dermatitis active 05/11/2013 Percocet active face breaks out Medications Medication Date Status Form Strength Qnty SIG Indications Ordering Provider Ventolin HFA 12/11/ Active Aerosol 108(90Bas 1inha 1 to 2 J20.9 Hyun 2015 e) ler inhalations Varn, mcg/Act every 4 N.P. hours as needed No Active 12/11/ Hx Unknown Medications 2015 - 2015 Azithromycin 12/11/ Hx Tablets 250mg 6tabs two tabs day J20.9 Hyun 2016 - one, one Varn, 12/21/ daily till N.P. 2016 gone Fluticasone 05/17/ Hx Suspension 50mcg/Act 16uni 2 sprays H92.01 Hyun Propionate 2016 - ts each nostril Varn, 05/31/ daily until N.P. 2016 symptoms subside Nystatin 05/17/ Hx Suspension [id number] 16oz 4 B37.0 Hyun 2016 - t/ML milliliters Varn, 12/11/ four times a N.P. 2016 day, swish and swallow for 14 days No Active 05/11/ Hx Unknown Medications 2013 - 2015 Omeprazole 02/25/ Hx Capsules DR 40mg 30cap 1 po qd 789.06 Esmer 2012 - s Augustin 05/11/ M.D. 2013 No Active 01/16/ Hx Unknown Medications 2012 - 2012 No Active 12/12/ Hx Unknown Medications 2012 - 2012 Bupropion HCL 12/12/ Hx Tablets ER 150mg 30tab take 1 305.1 Esmer ER 2012 - 12HR s tablet daily Augustin 01/16/ M.D. 2012 Fluticasone 12/12/ Hx Suspension 50mcg/Act 16gm 1 spray each 786.2 Esmer Propionate 2013 - nostril Ruffin, 01/16/ daily as M.D. 2013 needed Permethrin 07/24/ Hx Lotion 1% 1unit apply once 132.0 Re Lice Treatment 2011 - to the head Cruz, 12/12/ M.D. 2013 / Hx Tablets 90tab once a day Unknown Complete 0000 - s 2012 Immunizations CPT Code Status Date Vaccine Lot # [id number] Given 05/02/2015 Influenza Virus Vaccine, Quadrivalent, Split, [id number] Preservative Free [id number] Given 02/25/2013 Flu Vaccine Split Virus Preservative Free For Indiv [id number] Older Vital Signs Date Vital Result Comment 03/12/2017 Weight 242.00 lb Heart Rate 102 /min BP Systolic Sitting 138 mmHg BP Diastolic Sitting 66 mmHg Body Temperature 99.0 F O2 % BldC Oximetry 98 % 12/12/2015 Weight 233.00 lb Heart Rate 84 /min BP Systolic Sitting 124 mmHg BP Diastolic Sitting 82 mmHg Respiratory Rate 15 /min Body Temperature 98.3 F O2 % BldC Oximetry 99 % 09/14/2015 Weight 242.00 lb Heart Rate 72 /min BP Systolic Sitting 122 mmHg BP Diastolic Sitting 90 mmHg Body Temperature 97.6 F O2 % BldC Oximetry 99 % 05/17/2015 Height 63.75 inches 5'3.75" Weight 243.00 lb Heart Rate 96 /min BP Systolic Sitting 122 mmHg BP Diastolic Sitting 76 mmHg Respiratory Rate 15 /min Body Temperature 98.9 F O2 % BldC Oximetry 98 % BMI (Body Mass Index) 42.0 kg/m2 05/02/2015 Height 63.75 inches 5'3.75" Weight 243.00 lb Heart Rate 116 /min BP Systolic Sitting 122 mmHg BP Diastolic Sitting 78 mmHg Body Temperature 98.8 F O2 % BldC Oximetry 96 % BMI (Body Mass Index) 42.0 kg/m2 03/07/2015 Height 63.75 inches 5'3.75" Weight 243.00 lb Heart Rate 76 /min BP Systolic Sitting 124 mmHg BP Diastolic Sitting 80 mmHg Respiratory Rate 15 /min Body Temperature 99.2 F O2 % BldC Oximetry 98 % BMI (Body Mass Index) 42.0 kg/m2 05/11/2013 Weight 233.00 lb Heart Rate 72 /min BP Systolic 110 mmHg BP Diastolic 62 mmHg 02/25/2013 Weight 233.00 lb Heart Rate 70 /min BP Systolic Sitting 122 mmHg BP Diastolic Sitting 78 mmHg Body Temperature 97.9 F 01/16/2013 Weight 232.00 lb Heart Rate 72 /min BP Systolic Sitting 120 mmHg BP Diastolic Sitting 76 mmHg Body Temperature 97.9 F 12/12/2012 Weight 232.00 lb Heart Rate 70 /min BP Systolic Sitting 118 mmHg BP Diastolic Sitting 64 mmHg Body Temperature 97.9 F 07/25/2011 Height 64.50 inches 5'4.50" Weight 214.25 lb BP Systolic Sitting 118 mmHg r BP Diastolic Sitting 62 mmHg r BMI (Body Mass Index) 36.2 kg/m2 03/22/2011 Height 64.50 inches 5'4.50" Weight 216.00 lb Heart Rate 72 /min BP Systolic Sitting 120 mmHg BP Diastolic Sitting 80 mmHg BMI (Body Mass Index) 36.5 kg/m2 Results Test Date Test Result H/L Range Note Urinalysis Profile 10/22/2015 Urine Color Terri Urine Appearance Cloudy Urine Specific Haslet 1.030 1.010-1.030 Urine pH 5.0 5-9 Urine Urobilinogen Negative Negative Urine Ketones Trace Negative Urine Protein 1+(30 mg/dL) Negative Urine Leukocytes 3+ Negative Urine Blood 1+ Negative Urine Nitrite Negative Negative Urine Bilirubin Negative Negative Urine Glucose Negative Negative Urine White Blood Cell 1+(6-10/hpf) Absent Urine Red Blood Cell 1+(3-5/hpf) Absent Urine Bacteria Absent Absent Urine Squamous Epithelial Cell Present Absent Urine Culture And 10/22/2015 Urine Culture SEE RESULT BELOW 1 Sensitivities CBC Auto Diff 10/22/2015 White Blood Count 7.3 10^3/uL 3.5-10.8 Red Blood Count 4.03 10^6/uL 4.0-5.4 Hemoglobin 12.4 g/dL 12.0-16.0 Hematocrit 38 % 35-47 Mean Corpuscular Volume 93 fL 80-97 Mean Corpuscular Hemoglobin 31 pg 27-31 Mean Corpuscular HGB Conc 33 g/dL 31-36 Red Cell Distribution Width 13 % 10.5-15 Platelet Count 169 10^3/uL 150-450 Mean Platelet Volume 10 um3 7.4-10.4 Abs Neutrophils 4.7 10^3/uL 1.5-7.7 Abs Lymphocytes 1.6 10^3/uL 1.0-4.8 Abs Monocytes 0.4 10^3/uL 0-0.8 Abs Eosinophils 0.5 10^3/uL 0-0.6 Abs Basophils 0 10^3/uL 0-0.2 Abs Nucleated RBC 0 10^3/uL Granulocyte % 64.9 % 38-83 Lymphocyte % 21.6 % Low 25-47 Monocyte % 5.9 % 1-9 Eosinophil % 7.0 % High 0-6 Basophil % 0.6 % 0-2 Nucleated Red Blood Cells % 0 Type & Screen 10/22/2015 Patient Blood Type O Positive Antibody Screen NEGATIVE Comp Metabolic Panel 10/22/2015 Sodium 136 mmol/L 133-145 Potassium 3.7 mmol/L 3.5-5.0 Chloride 107 mmol/L 101-111 Co2 Carbon Dioxide 23 mmol/L 22-32 Anion Gap 6 mmol/L 2-11 Glucose 92 mg/dL 70-100 Blood Urea Nitrogen 8 mg/dL 6-24 Creatinine 0.81 mg/dL 0.51-0.95 BUN/Creatinine Ratio 9.9 8-20 Calcium 8.9 mg/dL 8.6-10.3 Total Protein 6.7 g/dL 6.4-8.9 Albumin 3.9 g/dL 3.2-5.2 Globulin 2.8 g/dL 2-4 Albumin/Globulin Ratio 1.4 1-3 Total Bilirubin 0.40 mg/dL 0.2-1.0 Alkaline Phosphatase 59 U/L 34-104 Alt 16 U/L 7-52 Ast 16 U/L 13-39 Egfr Non- 86.9 >60 Egfr 111.7 >60 2 Laboratory test 10/22/2015 HCG 49439.00 mIU/mL 3 finding Laboratory test 10/14/2015 TSH (Thyroid Stim Horm) 2.61 ?IU/mL 0.34-5.60 4 finding Lipid Profile 10/14/2015 Triglycerides 76 mg/dL 5 (Trig/Chol/HDL) Cholesterol 146 mg/dL 6 HDL Cholesterol 36.7 mg/dL 7 LDL Cholesterol 94 mg/dL 8 Basic Metabolic Panel 10/14/2015 Sodium 135 mmol/L 133-145 Potassium 4.4 mmol/L 3.5-5.0 Chloride 105 mmol/L 101-111 Co2 Carbon Dioxide 26 mmol/L 22-32 Anion Gap 4 mmol/L 2-11 Glucose 84 mg/dL 70-100 Blood Urea Nitrogen 5 mg/dL Low 6-24 Creatinine 0.75 mg/dL 0.51-0.95 BUN/Creatinine Ratio 6.7 Low 8-20 Calcium 9.3 mg/dL 8.6-10.3 Egfr Non- 94.9 >60 Egfr 122.1 >60 9 Comp Metabolic Panel 10/13/2015 Sodium 136 mmol/L 133-145 10 Potassium 3.9 mmol/L 3.5-5.0 10 Chloride 105 mmol/L 101-111 10 Co2 Carbon Dioxide 27 mmol/L 22-32 10 Anion Gap 4 mmol/L 2-11 10 Glucose 94 mg/dL 70-100 10 Blood Urea Nitrogen 6 mg/dL 6-24 10 Creatinine 0.72 mg/dL 0.51-0.95 10 BUN/Creatinine Ratio 8.3 8-20 10 Calcium 9.6 mg/dL 8.6-10.3 10 Total Protein 6.3 g/dL Low 6.4-8.9 10 Albumin 4.1 g/dL 3.2-5.2 10 Globulin 2.2 g/dL 2-4 10 Albumin/Globulin Ratio 1.9 1-3 10 Total Bilirubin 0.30 mg/dL 0.2-1.0 10 Alkaline Phosphatase 67 U/L 34-104 10 Alt 22 U/L 7-52 10 Ast 21 U/L 13-39 10 Egfr Non- 99.5 >60 10 Egfr 128.0 >60 10, 11 Laboratory test finding 04/15/2015 Rapid Strep Molecular Negative Negative 12 Throat-Beta Strept SEE RESULT BELOW 13 Laboratory test finding 04/15/2015 Rapid Strep A SEE RESULT BELOW 14 Urinalysis Profile 12/15/2013 Urine Color Yellow Urine Appearance Cloudy Urine Specific Haslet 1.015 1.010-1.030 Urine pH 6.0 5-9 Urine Urobilinogen Negative Negative Urine Ketones Negative Negative Urine Protein Negative Negative Urine Leukocytes 2+ Negative Urine Blood 1+ Negative Urine Nitrite Negative Negative Urine Bilirubin Negative Negative Urine Glucose Negative Negative Urine White Blood Cell 1+(6-10/hpf) Absent Urine Red Blood Cell 1+(3-5/hpf) Absent Urine Bacteria Absent Absent Urine Squamous Epithelial Cell Present Absent Urine Culture And 12/15/2013 Urine Culture (SEE NOTE) 15 Sensitivities CBC Auto Diff 05/24/2013 White Blood Count 9.3 10^3/uL 4.8-10.8 Red Blood Count 4.35 10^6/uL 4.0-5.4 Hemoglobin 13.1 g/dL 12.0-16.0 Hematocrit 40 % 35-47 Mean Corpuscular Volume 92 fL 80-97 Mean Corpuscular Hemoglobin 30 pg 27-31 Mean Corpuscular HGB Conc 33 g/dL 31-36 Red Cell Distribution Width 13 % 10.5-15 Platelet Count 185 10^3/uL 150-450 Mean Platelet Volume 10 um3 7.4-10.4 Abs Neutrophils 6.7 10^3/uL 1.5-7.7 Abs Lymphocytes 1.8 10^3/uL 1.0-4.8 Abs Monocytes 0.5 10^3/uL 0-0.8 Abs Eosinophils 0.3 10^3/uL 0-0.6 Abs Basophils 0 10^3/uL 0-0.2 Abs Nucleated RBC 0 10^3/uL Granulocyte % 71.8 % 38-83 Lymphocyte % 19.0 % Low 25-47 Monocyte % 5.7 % 1-9 Eosinophil % 3.1 % 0-6 Basophil % 0.4 % 0-2 Nucleated Red Blood Cells % 0 Urine Culture And Sensitivities 05/24/2013 Urine Culture (SEE NOTE) 16 Laboratory test finding 05/24/2013 Serum Negative Negative 17 Comp Metabolic Panel 05/24/2013 Sodium 135 mmol/L 133-145 Potassium 3.9 mmol/L 3.5-5.0 Chloride 104 mmol/L 101-111 Co2 Carbon Dioxide 26.0 mmol/L 22-32 Anion Gap 5.0 mmol/L 2-11 Glucose 88 mg/dL 70-100 Blood Urea Nitrogen 8 mg/dL 6-24 Creatinine 0.80 mg/dL 0.50-1.40 BUN/Creatinine Ratio 10.0 8-20 Calcium 9.0 mg/dL 8.1-9.9 Total Protein 6.7 g/dL 6.2-8.1 Albumin 4.1 g/dL 3.6-5.4 Globulin 2.6 g/dL 2-4 Albumin/Globulin Ratio 1.6 1-3 Total Bilirubin 0.6 mg/dL 0.4-1.5 Alkaline Phosphatase 78 U/L 50-176 Alt 24 U/L 14-54 Ast 22 U/L 12-42 Egfr Non- 90.5 >60 Egfr 116.4 >60 18 Laboratory test finding 05/24/2013 Lipase 19 U/L Low 22-51 C Reactive Protein < 0.5 mg/dL Less than 0.5 Urine Microscopic 05/24/2013 Urine WBC 1+ (<10 /hpf) None Seen Urine Mucus Present /lpf Absent Urine Epithelial Cells 3+ Squamous /hpf None Seen Bacteria Urine 2+ None Seen Urinalysis 05/24/2013 Urine Color Yellow Urine Appearance Clear Urine Specific Haslet 1.016 1.010-1.030 Urine Esterase 1+ Negative Urine Nitrate Negative Negative Urine Urobilinogen Negative E.U./dL Negative Urine Protein Negative mg/dL Negative Urine pH 5.5 5-9 Urine Blood Negative Negative Urine Ketones Negative mg/dL Negative Urine Bilirubin Negative Negative Urine Glucose Negative mg/dL Negative Laboratory test finding 05/11/2013 Test Urine neg Laboratory test finding 01/12/2013 Lipase 23 U/L 22-51 C Reactive Protein 0.5 mg/dL Less than 0.5 Serum Negative Negative 19 Urinalysis 01/12/2013 Urine Color Yellow Urine Appearance Clear Urine Specific Haslet 1.024 1.010-1.030 Urine Esterase 1+ Negative Urine Nitrate Negative Negative Urine Urobilinogen Negative E.U./dL Negative Urine Protein Negative mg/dL Negative Urine pH 5.5 5-9 Urine Blood Negative Negative Urine Ketones Negative mg/dL Negative Urine Bilirubin Negative Negative Urine Glucose Negative mg/dL Negative Urine Microscopic 01/12/2013 Urine WBC 1+ (<10 /hpf) None Seen Urine RBC None Seen None Seen Urine Mucus Present /lpf Absent Urine Epithelial Cells 2+ Squamous /hpf None Seen Bacteria Urine None Seen None Seen Urine Culture And 01/12/2013 Urine Culture (SEE NOTE) 20 Sensitivities CBC Auto Diff 01/12/2013 White Blood Count 12.0 10^3/uL High 4.8-10.8 Red Blood Count 4.33 10^6/uL 4.0-5.4 Hemoglobin 13.3 g/dL 12.0-16.0 Hematocrit 40 % 35-47 Mean Corpuscular Volume 93 fL 80-97 Mean Corpuscular Hemoglobin 31 pg 27-31 Mean Corpuscular HGB Conc 33 g/dL 31-36 Red Cell Distribution Width 13 % 10.5-15 Platelet Count 199 10^3/uL 150-450 Mean Platelet Volume 10 um3 7.4-10.4 Abs Neutrophils 9.1 10^3/uL High 1.5-7.7 Abs Lymphocytes 1.8 10^3/uL 1.0-4.8 Abs Monocytes 0.7 10^3/uL 0-0.8 Abs Eosinophils 0.4 10^3/uL 0-0.6 Abs Basophils 0.1 10^3/uL 0-0.2 Abs Nucleated RBC 0.01 10^3/uL Granulocyte % 75.5 % 38-83 Lymphocyte % 14.9 % Low 25-47 Monocyte % 5.6 % 1-9 Eosinophil % 3.4 % 0-6 Basophil % 0.6 % 0-2 Nucleated Red Blood Cells % 0.1 Comp Metabolic Panel 01/12/2013 Sodium 135 mmol/L 133-145 Potassium 3.8 mmol/L 3.5-5.0 Chloride 108 mmol/L 101-111 Co2 Carbon Dioxide 24.0 mmol/L 22-32 Anion Gap 3.0 mmol/L 2-11 Glucose 100 mg/dL 70-100 Blood Urea Nitrogen 6 mg/dL 6-24 Creatinine 0.60 mg/dL 0.50-1.40 BUN/Creatinine Ratio 10.0 8-20 Calcium 8.8 mg/dL 8.1-9.9 Total Protein 6.8 g/dL 6.2-8.1 Albumin 3.9 g/dL 3.6-5.4 Globulin 2.9 g/dL 2-4 Albumin/Globulin Ratio 1.3 1-3 Total Bilirubin 0.6 mg/dL 0.4-1.5 Alkaline Phosphatase 74 U/L 50-176 Alt 18 U/L 14-54 Ast 20 U/L 12-42 Egfr Non- 126.2 >60 Egfr 162.3 >60 21 CBC Auto Diff 12/29/2012 White Blood Count 9.0 10^3/uL 4.8-10.8 Red Blood Count 4.38 10^6/uL 4.0-5.4 Hemoglobin 13.1 g/dL 12.0-16.0 Hematocrit 40 % 35-47 Mean Corpuscular Volume 92 fL 80-97 Mean Corpuscular Hemoglobin 30 pg 27-31 Mean Corpuscular HGB Conc 32 g/dL 31-36 Red Cell Distribution Width 13 % 10.5-15 Platelet Count 218 10^3/uL 150-450 Mean Platelet Volume 10 um3 7.4-10.4 Abs Neutrophils 5.3 10^3/uL 1.5-7.7 Abs Lymphocytes 2.7 10^3/uL 1.0-4.8 Abs Monocytes 0.5 10^3/uL 0-0.8 Abs Eosinophils 0.4 10^3/uL 0-0.6 Abs Basophils 0.1 10^3/uL 0-0.2 Abs Nucleated RBC 0 10^3/uL Granulocyte % 58.9 % 38-83 Lymphocyte % 29.8 % 25-47 Monocyte % 5.7 % 1-9 Eosinophil % 4.9 % 0-6 Basophil % 0.7 % 0-2 Nucleated Red Blood Cells % 0 Inr/Protime 12/29/2012 Inr 0.91 0.87-0.97 Comp Metabolic Panel 12/29/2012 Sodium 137 mmol/L 133-145 Potassium 3.8 mmol/L 3.5-5.0 Chloride 105 mmol/L 101-111 Co2 Carbon Dioxide 25.0 mmol/L 22-32 Anion Gap 7.0 mmol/L 2-11 Glucose 90 mg/dL 70-100 Blood Urea Nitrogen 6 mg/dL 6-24 Creatinine 0.80 mg/dL 0.50-1.40 BUN/Creatinine Ratio 7.5 Low 8-20 Calcium 9.3 mg/dL 8.1-9.9 Total Protein 7.1 g/dL 6.2-8.1 Albumin 4.2 g/dL 3.6-5.4 Globulin 2.9 g/dL 2-4 Albumin/Globulin Ratio 1.4 1-3 Total Bilirubin 0.4 mg/dL 0.4-1.5 Alkaline Phosphatase 91 U/L 50-176 Alt 14 U/L 14-54 Ast 17 U/L 12-42 Egfr Non- 90.5 >60 Egfr 116.4 >60 22 Laboratory test finding 12/29/2012 Lactic Acid 0.9 mmol/L 0.5-1.6 Lipase 20 U/L Low 22-51 C Reactive Protein < 0.5 mg/dL Less than 0.5 Serum Negative Negative 23 Urine Culture And 12/29/2012 Urine Culture (SEE NOTE) 24 Sensitivities Urine Microscopic 12/29/2012 Urine WBC 1+ (<10 /hpf) None Seen Urine RBC 1+ (<3 /hpf) None Seen Urine Epithelial Cells 2+ Squamous /hpf None Seen Bacteria Urine 1+ None Seen Urinalysis 12/29/2012 Urine Color Yellow Urine Appearance Clear Urine Specific Haslet 1.014 1.010-1.030 Urine Esterase 2+ Negative Urine Nitrate Negative Negative Urine Urobilinogen Negative E.U./dL Negative Urine Protein Negative mg/dL Negative Urine pH 8.0 5-9 Urine Blood Negative Negative Urine Ketones Negative mg/dL Negative Urine Bilirubin Negative Negative Urine Glucose Negative mg/dL Negative CBC Auto Diff 11/03/2012 White Blood Count 10.6 10^3/uL 4.8-10.8 Red Blood Count 4.02 10^6/uL 4.0-5.4 Hemoglobin 12.4 g/dL 12.0-16.0 Hematocrit 37 % 35-47 Mean Corpuscular Volume 93 fL 80-97 Mean Corpuscular Hemoglobin 31 pg 27-31 Mean Corpuscular HGB Conc 33 g/dL 31-36 Red Cell Distribution Width 13 % 10.5-15 Platelet Count 199 10^3/uL 150-450 Mean Platelet Volume 10 um3 7.4-10.4 Abs Neutrophils 7.9 10^3/uL High 1.5-7.7 Abs Lymphocytes 1.7 10^3/uL 1.0-4.8 Abs Monocytes 0.6 10^3/uL 0-0.8 Abs Eosinophils 0.3 10^3/uL 0-0.6 Abs Basophils 0 10^3/uL 0-0.2 Abs Nucleated RBC 0 10^3/uL Granulocyte % 74.9 % 38-83 Lymphocyte % 16.5 % Low 25-47 Monocyte % 5.9 % 1-9 Eosinophil % 2.4 % 0-6 Basophil % 0.3 % 0-2 Nucleated Red Blood Cells % 0 Comp Metabolic Panel 11/03/2012 Sodium 136 mmol/L 133-145 Potassium 3.8 mmol/L 3.5-5.0 Chloride 108 mmol/L 101-111 Co2 Carbon Dioxide 22.0 mmol/L 22-32 Anion Gap 6.0 mmol/L 2-11 Glucose 92 mg/dL 70-100 Blood Urea Nitrogen 5 mg/dL Low 6-24 Creatinine 0.60 mg/dL 0.50-1.40 BUN/Creatinine Ratio 8.3 8-20 Calcium 9.1 mg/dL 8.1-9.9 Total Protein 7.1 g/dL 6.2-8.1 Albumin 4.1 g/dL 3.6-5.4 Globulin 3.0 g/dL 2-4 Albumin/Globulin Ratio 1.4 1-3 Total Bilirubin 0.6 mg/dL 0.4-1.5 Alkaline Phosphatase 72 U/L 50-176 Alt 15 U/L 14-54 Ast 21 U/L 12-42 Egfr Non- 126.2 >60 Egfr 162.3 >60 25 Laboratory test 11/03/2012 C Reactive Protein 1.0 mg/dL High Less than 0.5 finding Throat-Beta Strept 09/12/2012 Throat Beta Strep (SEE NOTE) 26 Culture Rapid Influenza A B 06/16/2012 Rapid Influenza A (SEE NOTE) 27 Antigen B Antigen Laboratory test 07/25/2011 TSH 2.65 MIU/ML 0.34-5.60 finding Comp Metabolic Panel 07/25/2011 Sodium 135 mmol/L 135-145 Potassium 3.9 mmol/L 3.5-5.0 Chloride 104 mmol/L 101-111 Co2 (Carbon Dioxide) 24.0 mmol/L 22-32 Anion Gap 7.0 mmol/L 2-11 28 Glucose 64 mg/dL Low 70-100 BUN 6 mg/dL 6-24 Creatinine 0.7 mg/dL 0.50-1.40 One Over Creatinine 1.42 BUN/Creatinine Ratio 8.6 8-20 Calcium 8.7 mg/dL 8.1-9.9 Total Protein 5.4 GM/DL Low 6.2-8.1 Albumin 3.0 GM/DL Low 3.6-5.4 Globulin 2.4 GM/DL 2-4 Albumin/Globulin Ratio 1.3 1-3 Bilirubin Total 0.3 mg/dL Low 0.4-1.5 29 Alkaline Phosphatase 76 U/L 40-122 Alt (SGPT) 14 U/L 14-54 Ast (Sgot) 15 U/L 12-42 eGFR Non- 107.8 > 60 eGFR 138.6 > 60 30 Drug Abuse 20 Urine 07/25/2011 Urine Ampetamines Negative ng/mL () 31 Urine Barbiturates Negative ng/mL () 32 Urine Benzodiazepines Negative ng/mL () 33 Urine Cocaine Negative ng/mL () 34 Urine Methadone Negative ng/mL () 35 Urine Opiates Negative ng/mL () 36 Urine Phencyclidine Negative ng/mL Cutoff: 25 Urine Propoxyphene Negative ng/mL () 37 Urine Tetrahydrocannabinol Negative ng/mL Cutoff: 20 38 Urine Opiates Screen Negative () 39 Urine Codeine By GC/MS Negative ng/mL () 40 Urine Hydrocodone By GC/MS Negative ng/mL () 41 Urine Hydromophone By GC/MS Negative ng/mL () 42 Urine Morphine By GC/MS Negative ng/mL () 43 Urine Oxycodone By GC/MS Negative ng/mL () 44 Urine Opiates Interpretation Negative. () 45 1 SEE RESULT BELOW Name: ROMAIN SWEET : [address]: Riaz Soler MD Acct: [id number] Unit: [id number] AGE: 25 Location: ED Re10/22/15 SEX: F Status: DEP ER SPEC: [id number] SUSHANT: 10/22/[address]: Riaz Soler MD REQ: [id number] RECD: 10/22/15 STATUS: COMP ANUSHKA DR: Tonia Dykes MD _ SOURCE: URINE SPDESC: ORDERED: Urine Culture Procedure Result Reported Site Urine Culture Final 10/23/15- 1156 ML No growth of clinically significant organisms * ML - MAIN LAB (PSC1) . END OF REPORT * ML=Testing performed at Main Lab DEPARTMENT OF PATHOLOGY, [address] [place] [address] Boston Davila M.D. Director [facility] # [id number] 2 Because ethnic data is not always readily available, this report includes an eGFR for both -Americans and non- Americans. The National Kidney Disease Education Program (NKDEP) does not endorse the use of the MDRD equation for patients that are not between the ages of 18 and 70, are , have extremes of body size, muscle mass, or nutritional status, or are non- or non-. According to the National Kidney Foundation, irrespective of diagnosis, the stage of the disease is based on the level of kidney function: Stage Description GFR(mL/min/1.73 m(2)) 1 Kidney damage with normal or decreased GFR 90 2 Kidney damage with mild decrease in GFR 60-89 3 Moderate decrease in GFR 30-59 4 Severe decrease in GFR 15-29 5 Kidney failure <15 (or dialysis) 3 <5.0 Negative 5.0 - 25.0 Indeterminate (Repeat testing recommended after 72 hours) >25.0 Positive Perimenopausal women can display HCG levels of up to 20 mIU/mL 4 FASTING 10 HOUR 5 Desirable <150 Borderline high 150-199 High 200-499 Very High >500 6 Desirable <200 Borderline high 200-239 High >239 7 Low <40 Desirable: 40-60 High: >60 8 Desirable: <100 mg/dL Near Optimal: 100-129 mg/dL Borderline High: 130-159 mg/dL High: 160-189 mg/dL Very High: >189 mg/dL 9 Because ethnic data is not always readily available, this report includes an eGFR for both -Americans and non- Americans. The National Kidney Disease Education Program (NKDEP) does not endorse the use of the MDRD equation for patients that are not between the ages of 18 and 70, are , have extremes of body size, muscle mass, or nutritional status, or are non- or non-. According to the National Kidney Foundation, irrespective of diagnosis, the stage of the disease is based on the level of kidney function: Stage Description GFR(mL/min/1.73 m(2)) 1 Kidney damage with normal or decreased GFR 90 2 Kidney damage with mild decrease in GFR 60-89 3 Moderate decrease in GFR 30-59 4 Severe decrease in GFR 15-29 5 Kidney failure <15 (or dialysis) 10 [id number] 11 Because ethnic data is not always readily available, this report includes an eGFR for both -Americans and non- Americans. The National Kidney Disease Education Program (NKDEP) does not endorse the use of the MDRD equation for patients that are not between the ages of 18 and 70, are , have extremes of body size, muscle mass, or nutritional status, or are non- or non-. According to the National Kidney Foundation, irrespective of diagnosis, the stage of the disease is based on the level of kidney function: Stage Description GFR(mL/min/1.73 m(2)) 1 Kidney damage with normal or decreased GFR 90 2 Kidney damage with mild decrease in GFR 60-89 3 Moderate decrease in GFR 30-59 4 Severe decrease in GFR 15-29 5 Kidney failure <15 (or dialysis) 12 Mining Consultant: [email or web address] The yarn packer and regulatory agencies both recommend that a throat culture for beta strep be performed if a Rapid Group A Strep assay yields a negative result. Therefore a culture will be automatically performed on all negative samples. 13 SEE RESULT BELOW Name: [place] : [address]: Reta Jernigan MD Acct: [id number] Unit: [id number] AGE: 24 Location: ED Re04/15/15 SEX: F Status: DEP ER SPEC: [id number] SUSHANT: 04/15/15-[address]: [facility] REQ: [id number] RECD: 04/15/15 STATUS: RUTHIE REVELES DR: Tonia Dykes MD _ SOURCE: THROAT SPDESC: ORDERED: Throat Beta Str Procedure Result Reported Site Throat Beta Strep Culture Final 04/17/15- 0941 ML Negative For Group A Beta Streptococcus * ML - MAIN LAB (PSC1) . END OF REPORT * ML=Testing performed at Main Lab DEPARTMENT OF PATHOLOGY, [address] [place] [address] Boston Davila M.D. Director [facility] # [id number] 14 SEE RESULT BELOW Name: ROMAIN SWEET : [address]: Reji Hummel Acct: [id number] Unit: [id number] AGE: 24 Location: ED Re04/15/15 SEX: F Status: REG ER SPEC: [id number] SUSHANT: 04/15/[address]: Reta Jernigan MD REQ: [id number] RECD: 04/15/15 STATUS: RUTHIE REVELES DR: [facility] Tonia Dykes MD _ SOURCE: THROAT SPDESC: ORDERED: Strep A Request Procedure Result Reported Site Rapid Strep A Request Final 04/15/15 1551 ML Specimen received for Rapid Strep A Molecular testing * ML - MAIN LAB ([facility]) . END OF REPORT * ML=Testing performed at Main Lab DEPARTMENT OF PATHOLOGY, [address] [place] [address] Boston Davila M.D. Director ANIBAL # [id number] RUN DATE: 12/17/13 [facility] LAB LIVE PAGE 1 RUN TIME: 1023 [address] [place], [place] [address] Specimen Inquiry Name: ROMAIN SWEET : [address]: Reta Jernigan MD Acct: [id number] Unit: [id number] AGE: 23 Location: ED Re12/15/13 SEX: F Status: DEP ER SPEC: [id number] SUSHANT: 12/15/[address] [facility] [address]: Alex Hollins MD REQ: [id number] RECD: 12/15/13 STATUS: RUTHIE REVELES DR: [facility] Esmer Rinaldi MD _ SOURCE: URINE SPDESC: ORDERED: Urine Culture Procedure Result Verified Site Urine Culture Final 12/17/13- 1023 ML No Growth Day 2 (<1,000 CFU/mL) END OF REPORT * ML=Testing performed at Main Lab DEPARTMENT OF PATHOLOGY, [facility] [place], [place] [address] Boston Davila M.D. Director IA # [id number] RUN DATE: 05/26/13 [facility] LAB LIVE PAGE 1 RUN TIME: 1006 [facility] [employer] [place], [place] [address] Specimen Inquiry Name: ROMAIN SWEET : [address]: Alex Hollins MD Acct: [id number] Unit: [id number] AGE: 22 Location: ED Re05/24/13 SEX: F Status: DEP ER SPEC: [id number] SUSHANT: 05/24/13-[address]: Shashank ORTIZ REQ: [id number] RECD: 05/24/13011 STATUS: RUTHIE REVELES DR: [facility] Esmer Ruffin MD _ SOURCE: URINE SPDESC: ORDERED: Urine Culture Procedure Result Verified Site Urine Culture Final 05/26/13- 1006 ML Organism 1 NORMAL YOHANNES [place] Count 1-10,000 (Few) CFU/ML END OF REPORT * ML=Testing performed at Main Lab DEPARTMENT OF PATHOLOGY, [address] [place] [address] Boston Davila M.D. Director [facility] Permit #[id number] 17 This test detects intact HCG only and is indicated for the early detection of . 18 Because ethnic data is not always readily available, this report includes an eGFR for both -Americans and non- Americans. The National Kidney Disease Education Program (NKDEP) does not endorse the use of the MDRD equation for patients that are not between the ages of 18 and 70, are , have extremes of body size, muscle mass, or nutritional status, or are non- or non-. According to the National Kidney Foundation, irrespective of diagnosis, the stage of the disease is based on the level of kidney function: Stage Description GFR(mL/min/1.73 m(2)) 1 Kidney damage with normal or decreased GFR 90 2 Kidney damage with mild decrease in GFR 60-89 3 Moderate decrease in GFR 30-59 4 Severe decrease in GFR 15-29 5 Kidney failure <15 (or dialysis) 19 This test detects intact HCG only and is indicated for the early detection of . 20 RUN DATE: 01/15/13 [facility] LAB LIVE PAGE 1 RUN TIME: [address] [place] [address] Specimen Inquiry Name: ROMAIN SWEET : [address]: Mateo Morataya DO Acct: [id number] Unit: [id number] AGE: 22 Location: ED Re01/12/13 SEX: F Status: DEP ER SPEC: [id number] SUSHANT: 01/12/[address]: Shashank ORTIZ REQ: [id number] RECD: 01/12/13 STATUS: RUTHIE REVELES DR: [facility] Esmer Ruffin MD _ SOURCE: URINE SPDESC: ORDERED: Urine Culture Procedure Result Verified Site Urine Culture Final 01/15/13- 09 ML Organism 1 NORMAL YOHANNES [place] Count 75-100,000 (Many) CFU/ML END OF REPORT * ML=Testing performed at Main Lab DEPARTMENT OF PATHOLOGY, [address] [place] [address] Boston Davila M.D. Director [facility] Permit #[id number] 21 Because ethnic data is not always readily available, this report includes an eGFR for both -Americans and non- Americans. The National Kidney Disease Education Program (NKDEP) does not endorse the use of the MDRD equation for patients that are not between the ages of 18 and 70, are , have extremes of body size, muscle mass, or nutritional status, or are non- or non-. According to the National Kidney Foundation, irrespective of diagnosis, the stage of the disease is based on the level of kidney function: Stage Description GFR(mL/min/1.73 m(2)) 1 Kidney damage with normal or decreased GFR 90 2 Kidney damage with mild decrease in GFR 60-89 3 Moderate decrease in GFR 30-59 4 Severe decrease in GFR 15-29 5 Kidney failure <15 (or dialysis) 22 Because ethnic data is not always readily available, this report includes an eGFR for both -Americans and non- Americans. The National Kidney Disease Education Program (NKDEP) does not endorse the use of the MDRD equation for patients that are not between the ages of 18 and 70, are , have extremes of body size, muscle mass, or nutritional status, or are non- or non-. According to the National Kidney Foundation, irrespective of diagnosis, the stage of the disease is based on the level of kidney function: Stage Description GFR(mL/min/1.73 m(2)) 1 Kidney damage with normal or decreased GFR 90 2 Kidney damage with mild decrease in GFR 60-89 3 Moderate decrease in GFR 30-59 4 Severe decrease in GFR 15-29 5 Kidney failure <15 (or dialysis) 23 This test detects intact HCG only and is indicated for the early detection of . 24 RUN DATE: 01/01/13 [facility] LAB LIVE PAGE 1 RUN TIME: [address] [place] [address] Specimen Inquiry Name: ROMAIN SWEET : [address]: Wes Pickett DO Acct: [id number] Unit: [id number] AGE: 22 Location: ED Re12/29/12 SEX: F Status: DEP ER SPEC: [id number] SUSHANT: 12/29/[address]: Alex Hollins MD REQ: [id number] RECD: 12/29/12 STATUS: RUTHIE REVELES DR: [facility] Esmer Ruffin MD _ SOURCE: URINE SPDESC: ORDERED: Urine Culture Procedure Result Verified Site Urine Culture Final 01/01/13- 1025 ML Organism 1 NORMAL YOHANNES [place] Count >100,000 (Many) CFU/ML END OF REPORT * ML=Testing performed at Main Lab DEPARTMENT OF PATHOLOGY, [facility] [place], [place] [address] Boston Davila M.D. Director [facility] Permit #[id number] 25 Because ethnic data is not always readily available, this report includes an eGFR for both -Americans and non- Americans. The National Kidney Disease Education Program (NKDEP) does not endorse the use of the MDRD equation for patients that are not between the ages of 18 and 70, are , have extremes of body size, muscle mass, or nutritional status, or are non- or non-. According to the National Kidney Foundation, irrespective of diagnosis, the stage of the disease is based on the level of kidney function: Stage Description GFR(mL/min/1.73 m(2)) 1 Kidney damage with normal or decreased GFR 90 2 Kidney damage with mild decrease in GFR 60-89 3 Moderate decrease in GFR 30-59 4 Severe decrease in GFR 15-29 5 Kidney failure <15 (or dialysis) 26 RUN DATE: 09/15/12 [facility] LAB LIVE PAGE 1 RUN TIME: [address] [place] [address] Specimen Inquiry Name: ROMAIN SWEET : [address]: Dolores Rahman MD Acct: [id number] Unit: [id number] AGE: 22 Location: [facility] Re09/12/12 SEX: F Status: DEP ER SPEC: [id number] SUSHANT: 09/12/[address] [facility] [address]: Dolores Rahman MD REQ: [id number] RECD: 09/13/12 STATUS: RUTHIE REVELES DR: HEATHER Ruffin MD _ SOURCE: THROAT SPDESC: ORDERED: Throat Beta Str Procedure Result Verified Site Throat Beta Strep Culture Final 09/15/12802 ML Group A Beta-Strep Negative END OF REPORT * ML=Testing performed at Main Lab DEPARTMENT OF PATHOLOGY, [address] [place] [address] Boston Davila M.D. Director [facility] Permit #[id number] RUN DATE: 06/16/12 [facility] LAB LIVE PAGE 1 RUN TIME: 4857 [address] [place], [place] [address] Specimen Inquiry Name: ALLA SWEETNEELAM Garcia : [address]: Riaz Soler MD Acct: [id number] Unit: [id number] AGE: 21 Location: ED Re06/16/12 SEX: F Status: REG ER SPEC: [id number] SUSHANT: 06/16/[address]: Thea ORTIZ REQ: [id number] RECD: 06/16/12 STATUS: RUTHIE REVELES DR: Esmer Soler MD _ SOURCE: [facility]: ORDERED: Rapid Flu A B Procedure Result Verified Site Rapid Influenza A B Antigen Final 06/16/12- 2329 ML Influenza A Antigen Negative by Enzyme Immunoassay Influenza B Antigen Negative by Enzyme Immunoassay Cell culture testing can be performed to confirm negative test results and to assist in detecting other viruses that can produce similar clinical symptoms. Please notify Microbiology Lab if further testing is desired. END OF REPORT * ML=Testing performed at Main Lab DEPARTMENT OF PATHOLOGY, [address] [place] [address] Boston Davila M.D. Director [facility] Permit #[id number] 28 Anion gap measurement may be of limited value in the presence of any alkalosis, especially in a combined acid base disorder. . 29 A metabolite of Naproxen, O-desmethylnaproxen, has been shown to interfere with the [employer] method for measuring total bilirubin. Samples from patients who have taken Naproxen have shown spurious elevation in total bilirubin levels. 30 Because ethnic data is not always readily available, this report includes an eGFR for both -Americans and non- Americans. The National Kidney Disease Education Program (NKDEP) does not endorse the use of the MDRD equation for patients that are not between the ages of 18 and 70, are , have extremes of body size, muscle mass, or nutritional status, or are non- or non-. According to the National Kidney Foundation, irrespective of diagnosis, the stage of the disease is based on the level of kidney function: Stage Description GFR(mL/min/1.73 m(2)) 1 Kidney damage with normal or decreased GFR 90 2 Kidney damage with mild decrease in GFR 60-89 3 Moderate decrease in GFR 30-59 4 Severe decrease in GFR 15-29 5 Kidney failure <15 (or dialysis) 31 -- REFERENCE VALUE -- Cutoff: 500 32 -- REFERENCE VALUE -- Cutoff: 200 33 -- REFERENCE VALUE -- Cutoff: 200 34 -- REFERENCE VALUE -- Cutoff: 300 35 -- REFERENCE VALUE -- Cutoff: 300 36 -- REFERENCE VALUE -- Cutoff: 300 37 -- REFERENCE VALUE -- Cutoff: 300 38 This report is intended for use in clinical monitoring or management of patients. It is not intended for use in employment-related testing. Test Performed by: [facility] Dpt of Lab Med and Pathology [address] [place] [address] Industrial Retrofit Designer: George Yeung III, M.D. 39 -- REFERENCE VALUE -- Cutoff: 300 40 -- REFERENCE VALUE -- Cutoff: 100 41 -- REFERENCE VALUE -- Cutoff: 100 42 -- REFERENCE VALUE -- Cutoff: 100 43 -- REFERENCE VALUE -- Cutoff: 100 44 -- REFERENCE VALUE -- Cutoff: 100 45 This report is intended for use in clinical monitoring and management of patients. It is not intended for use in employment-related testing. Test Performed by: [facility] Dpt of Lab Med and Pathology [address] [place] [address] Industrial Retrofit Designer: George Yeung III, M.D. Procedures Date CPT Code Description Status 02/08/2013 55586 Polysomnography Sleep Staging 4+ Parameters W/Cpap Completed 01/26/2013 07151 Polysomnography Sleep Staging 4+ Parameters Completed Encounters Type Date Location Provider CPT E/M Dx Office Visit 03/12/2017 2:40p [facility] [place], [address] R23.2 - [place] Faria,FACP O00.01 Office Visit 12/12/2015 4:20p [facility] Hyun Conway, N.P. 57872 J45.901 - Elier J20.9 Office Visit 09/14/2015 10:20a [facility] Hyun Conway N.P. [address]27[address] R10.13 - [place] Office Visit 05/17/2015 3:00p [facility] Hyun Conway, N.P. [address]162 H92.01 - [place] B37.0 L72.3 Office Visit 05/02/2015 10:00a [facility] - Ricki Caraballo, BENCH MECHANIC [address] E66.9 Z13.1 Z13.220 G47.30 Z72.0 J06.9 Z23 Z00.00 Office Visit 03/07/2015 11:20a [facility] Hyun Conway, N.P. [address]321 D23.9 - [place] R22.1 L91.8 Office Visit 05/11/2013 2:40p [facility] - Esmer Ruffin M.D. 18082 784.0 [place] 278.00 327.20 787.02 V25.09 Office Visit 02/25/2013 3:20p [facility] - Esmer Ruffin M.D. 20727 789.06 [place] V04.81 Office Visit 01/16/2013 3:30p [facility] Christopher Skinner, [address] 780.59 [place] 786.09 780.79 Office Visit 01/16/2013 2:40p [facility] - Esmer Ruffin M.D. 51936 278.00 [place] 305.1 Office Visit 12/12/2012 10:20a [facility] - Esmer Ruffin M.D. 27968 305.1 [place] 786.2 307.49 278.00 Office Visit 07/25/2011 1:30p [facility] [place] [address] 300.00 - Elier Faria 132.0 Office Visit 03/22/2011 1:00p DO Not Use Marine Equipment Design Engineer At [place] M.D. 8[address]10 578.1 [place] 300.00 V72.42 278.00 Plan of Care No Information Available
== END 2017-04-07 13:21 | disposition home or self-care (01) ==
LOC: ED 10:25
DX: S16.1XXA Strain of muscle, fascia and tendon at neck level, initial encounter (principal); J45.909 Unspecified asthma, uncomplicated; F32.9 Major depressive disorder, single episode, unspecified; X58.XXXA Exposure to other specified factors, initial encounter; Y92.9 Unspecified place or not applicable; Z88.0 Allergy status to penicillin; Z88.5 Allergy status to narcotic agent; Z87.891 Personal history of nicotine dependence
CPT/HCPCS: 99282; A9270-GY

== ENCOUNTER 2017-05-23 10:49 | Emergency (ER) | payer OTHER ==
--- OUTSIDE RECORDS SUMMARY | 2017-05-23 10:57 | XMS REPORT ---
:1990 External Reference #:[id number] Author Organization [facility] [email or web address] Address [address] [address] Phone [phone] Care Team Providers Name Role Phone Tonia Dykes MD Primary Care Physician Unavailable Payers Type Date Identification Numbers Payment Provider Subscriber Commercial Effective: Policy Number: [id number] Total Care/Mcintyre Romain Sweet 2011 [facility] PayID: [id number] [address] [address] [place] [address] Problems Date Description Provider Status Onset: 01/16/2013 [...] smokes every day Smoking pack a day Smoking Patient is a former smoker Daily Caffeine and sodas Daily Caffeine drinks root beer Exercise Type/Frequency Does not exercise General Hx Text Allergies, Adverse Reactions, Alerts Date Description Reaction Status Severity Comments 03/22/2011 Penicillin Contact dermatitis active 05/11/2013 Percocet active face breaks out Medications Medication Date Status Form Strength Qnty SIG Indications Ordering Provider Zithromax 04/29/ Active Tablets 250mg 1Pack as per H66.92 Jeronimo Joseph 2018 directions Giana Menezes Ventolin HFA 12/11/ Active Aerosol 108(90Bas 1inha [...] 2016 symptoms subside Nystatin 05/17/ Hx Suspension 784189Vtz 16oz 4 B37.0 Hyun 2016 - t/ML milliliters Varn, 12/11/ four times a N.P. 2016 day, swish and swallow for 14 days No Active 05/11/ Hx Unknown Medications 2013 - 2015 Omeprazole 02/25/ Hx Capsules DR 40mg 30cap 1 po qd 789.06 Esmer Peralta s Augustin 05/11/ Giana 2013 No Active 01/16/ Hx Unknown Medications 2012 - 2012 No Active 12/12/ Hx Unknown Medications 2012 - 2012 Bupropion HCL 12/12/ Hx Tablets ER 150mg 30tab take 1 305.1 Esmer ER 2012 - 12HR s tablet daily Augustin, 01/16/ M.D. 2012 Fluticasone 12/12/ Hx Suspension 50mcg/Act 16gm 1 spray each 786.2 Esmer Propionate 2013 - nostril Augustin, 01/16/ daily as M.D. 2012 needed Permethrin 07/24/ Hx Lotion 1% 1unit apply once 132.0 Re Lice Treatment 2011 - s to the head Anthony, 12/12/ M.D. 2013 / Hx Tablets 90tab once a day Unknown Complete 0000 - s 2012 Immunizations CPT Code Status Date Vaccine Lot # [id number] Given 05/02/2015 Influenza Virus Vaccine, Quadrivalent, Split, [id number] Preservative Free [id number] Given 02/25/2013 Flu Vaccine Split Virus Preservative Free For Indiv [id number] Older Vital Signs Date Vital Result Comment 04/29/2017 Weight 236.00 lb Heart Rate 81 /min BP Systolic Sitting 128 mmHg BP Diastolic Sitting 58 mmHg Body Temperature 99.3 F O2 % BldC Oximetry 99 % 03/12/2017 Weight 242.00 lb Heart Rate 102 [...] Color Terri Urine Appearance Cloudy Urine Specific [place] 1.030 1.010-1.030 Urine pH 5.0 5-9 Urine [...] 111.7 >60 2 Laboratory test 10/22/2015 HCG 25000.00 mIU/mL 3 finding Laboratory test 10/14/2015 TSH [...] Color Yellow Urine Appearance Cloudy Urine Specific [place] 1.015 1.010-1.030 Urine pH 6.0 5-9 Urine [...] Color Yellow Urine Appearance Clear Urine Specific [place] 1.016 1.010-1.030 Urine Esterase 1+ Negative Urine [...] Color Yellow Urine Appearance Clear Urine Specific [place] 1.024 1.010-1.030 Urine Esterase 1+ Negative Urine [...] Color Yellow Urine Appearance Clear Urine Specific [place] 1.014 1.010-1.030 Urine Esterase 2+ Negative Urine [...] () 45 1 SEE RESULT BELOW Name: ILSAROMAIN : [address]: Riaz Soler MD Acct: [id number] Unit: [id number] AGE: 25 Location: ED Re10/22/15 SEX: F Status: DEP ER SPEC: [id number] SUSHANT: 10/22/15 [facility] [address]: Riaz Soler MD REQ: [id number] RECD: 10/22/15 STATUS: RUTHIE REVELES DR: Tonia Dykes MD _ SOURCE: URINE SPDESC: ORDERED: Urine Culture Procedure Result Reported Site Urine Culture Final 10/23/15- 1156 ML No growth of clinically significant organisms * ML - MAIN LAB ([facility]) . END OF REPORT * ML=Testing performed at Main Lab DEPARTMENT OF PATHOLOGY, [address] [place] [address] Boston Davila M.D. Director [facility] # [id number] 2 Because ethnic data is not always [...] 5 Kidney failure <15 (or dialysis) 10 [id number] 11 Because ethnic data is not always [...] 5 Kidney failure <15 (or dialysis) 12 Concrete Mixing Truck Driver: AMNA Treadwell The mesh cutter and regulatory agencies both recommend that a throat culture for beta strep be performed if a Rapid Group A Strep assay yields a negative result. Therefore a culture will be automatically performed on all negative samples. 13 SEE RESULT BELOW Name: ROMAIN SWEET : [address]: Reta Jernigan MD Acct: [id number] Unit: [id number] AGE: 24 Location: ED Re04/15/15 SEX: F Status: DEP ER SPEC: [id number] SUSHANT: 04/15/15-[address]: [facility] REQ: [id number] RECD: 04/15/15 STATUS: COMP OTHR DR: Tonia Dykes MD _ SOURCE: THROAT SPDESC: ORDERED: Throat Beta Str Procedure Result Reported Site Throat Beta Strep Culture Final 04/17/15- 940 ML Negative For Group A Beta Streptococcus * ML - MAIN LAB ([facility]) . END OF REPORT * ML=Testing performed at Main Lab DEPARTMENT OF PATHOLOGY, [address] [place] [address] Boston Davila M.D. Director [facility] # [id number] 14 SEE RESULT BELOW Name: ROMAIN SWEET : [address]: [facility] Acct: [id number] Unit: [id number] AGE: 24 Location: ED Re04/15/15 SEX: F Status: REG ER SPEC: [id number] SUSHANT: 04/15/[address]: Reta Jernigan MD REQ: [id number] RECD: 04/15/15 STATUS: RUTHIE REVELES DR: [facility] Tonia Dykes MD _ SOURCE: THROAT SPDESC: ORDERED: Strep A Request Procedure Result Reported Site Rapid Strep A Request Final 04/15/15- 0515 ML Specimen received for Rapid Strep A Molecular testing * ML - MAIN LAB ([facility]) . END OF REPORT * ML=Testing performed at Main Lab DEPARTMENT OF PATHOLOGY, [facility] [employer] [place], [place] [address] Boston Davila M.D. Director [facility] # [id number] 15 RUN DATE: 12/17/13 [facility] LAB LIVE PAGE 1 RUN TIME: 1023 [facility] [employer] [place], [place] [address] Specimen Inquiry Name: ROMAIN SWEET : [address]: Reta Jernigan MD Acct: [id number] Unit: [id number] AGE: 23 Location: ED Re12/15/13 SEX: F Status: DEP ER SPEC: [id number] SUSHANT: 12/15/13-1728 [facility] [address]: Alex Hollins MD REQ: [id number] RECD: 12/15/13 STATUS: RUTHIE REVELES DR: [facility] Esmer Rinaldi MD _ SOURCE: URINE SPDESC: ORDERED: Urine Culture Procedure Result Verified Site Urine Culture Final 12/17/13- 1023 ML No Growth Day 2 (<1,000 CFU/mL) END OF REPORT * ML=Testing performed at Main Lab DEPARTMENT OF PATHOLOGY, [facility] [employer] [place] [address] Boston Davila M.D. Director [facility] # [id number] 16 RUN DATE: 05/26/13 [facility] LAB LIVE PAGE 1 RUN TIME: [address] [place] [address] Specimen Inquiry Name: ROMAIN SWEET : [address]: Alex Hollins MD Acct: [id number] Unit: [id number] AGE: 22 Location: ED Re05/24/13 SEX: F Status: DEP ER SPEC: [id number] SUSHANT: 05/24/13-[address]: Shashank ORTIZ REQ: [id number] RECD: 05/24/13 STATUS: RUTHIE REVELES DR: [facility] Esmer Ruffin MD _ SOURCE: URINE SPDESC: ORDERED: Urine Culture Procedure Result Verified Site Urine Culture Final 05/26/13- 1006 ML Organism 1 NORMAL YOHANNES [place] Count 1-10,000 (Few) CFU/ML END OF REPORT * ML=Testing performed at Main Lab DEPARTMENT OF PATHOLOGY, [address] [place] [address] Boston Davila M.D. Director [facility] Permit #[id number] 17 This test detects intact HCG only [...] detection of . 20 RUN DATE: 01/15/13 [facility] LAB LIVE PAGE 1 RUN TIME: [address] [place] [address] Specimen Inquiry Name: ROMAIN SWEET : [address]: Mateo Morataya DO Acct: [id number] Unit: [id number] AGE: 22 Location: ED Re01/12/13 SEX: F Status: DEP ER SPEC: [id number] SUSHANT: 01/12/[address]: Shashank ORTIZ REQ: [id number] RECD: 01/12/13 STATUS: RUTHIE REVELES DR: [facility] Esmer Ruffin MD _ SOURCE: URINE SPDESC: ORDERED: Urine Culture Procedure Result Verified Site Urine Culture Final 01/15/13- 953 ML Organism 1 NORMAL YOHANNES [place] Count 75-100,000 (Many) CFU/ML END OF REPORT * ML=Testing performed at Main Lab DEPARTMENT OF PATHOLOGY, [address] [place] [address] Boston Davila M.D. Director [facility] Permit #[id number] 21 Because ethnic data is not always [...] detection of . 24 RUN DATE: 01/01/13 [facility] LAB LIVE PAGE 1 RUN TIME: 10[address] [place], [place] [address] Specimen Inquiry Name: ROMAIN SWEET : [address]: Wes Pickett DO Acct: [id number] Unit: [id number] AGE: 22 Location: ED Re12/29/12 SEX: F Status: DEP ER SPEC: [id number] SUSHANT: 12/29/12-[address]: Alex Hollins MD REQ: [id number] RECD: 12/29/12 STATUS: RUTHIE REVELES DR: [facility] Esemr Ruffin MD _ SOURCE: URINE SPDESC: ORDERED: Urine Culture Procedure Result Verified Site Urine Culture Final 01/01/13- 1025 ML Organism 1 NORMAL YOHANNES [place] Count >100,000 (Many) CFU/ML END OF REPORT * ML=Testing performed at Main Lab DEPARTMENT OF PATHOLOGY, [facility] [employer] [place], [place] [address] Boston Davila M.D. Director [facility] Permit #[id number] 25 Because ethnic data is not always [...] <15 (or dialysis) 26 RUN DATE: 09/15/12 [facility] LAB LIVE PAGE 1 RUN TIME: 802 [facility] [employer] [place], [place] [address] Specimen Inquiry Name: ROMAIN SWEET : [address]: Dolores Rahman MD Acct: [id number] Unit: [id number] AGE: 22 Location: [facility] Re09/12/12 SEX: F Status: DEP ER SPEC: [id number] SUSHANT: 09/12/12-[address] [facility] [address]: Dolores Rahman MD REQ: [id number] RECD: 09/13/12 STATUS: RUTHIE REVELES DR: HEATHER Ruffin MD _ SOURCE: THROAT SPDESC: ORDERED: Throat Beta Str Procedure Result Verified Site Throat Beta Strep Culture Final 09/15/12- 0803 ML Group A Beta-Strep Negative END OF REPORT * ML=Testing performed at Main Lab DEPARTMENT OF PATHOLOGY, [facility] [employer] [place], [place] [address] Boston Davila M.D. Director [facility] Permit #[id number] 27 RUN DATE: 06/16/12 [facility] LAB LIVE PAGE 1 RUN TIME: 2328 [facility] [employer] [place], [place] [address] Specimen Inquiry Name: ROMAIN SWEET : [address]: Riaz Soler MD Acct: [id number] Unit: [id number] AGE: 21 Location: ED Re06/16/12 SEX: F Status: REG ER SPEC: [id number] SUSHANT: 06/16/[address] [facility] [address]: Thea ORTIZ REQ: [id number] RECD: 06/16/12 STATUS: RUTHIE REVELES DR: Esmer Soler MD _ SOURCE: [facility]: ORDERED: Rapid Flu A B Procedure Result [...] performed at Main Lab DEPARTMENT OF PATHOLOGY, [address] [place] [address] Boston Davila M.D. Director [place] Permit #[id number] 28 Anion gap measurement may be of limited value in the presence of any alkalosis, especially in a combined acid base disorder. . 29 A metabolite of Naproxen, O-desmethylnaproxen, has been shown to interfere with the Jendrdorisik-Seminary method for measuring total bilirubin. Samples from [...] use in employment-related testing. Test Performed by: [facility] Dpt of Lab Med and Pathology [address] [place] [address] Banana Grader: George Yeung III, M.D. 39 -- REFERENCE [...] use in employment-related testing. Test Performed by: [facility] D[facility] of Lab Med and Pathology [address] [place], [place] [address] Banana Grader: George Yeung III, M.D. Procedures Date CPT Code Description Status 02/08/2013 93572 Polysomnography Sleep Staging 4+ Parameters W/Cpap Completed 01/26/2013 07779 Polysomnography Sleep Staging 4+ Parameters Completed Encounters Type Date Location Provider CPT E/M Dx Office Visit 03/12/2017 2:40p [facility] [place], [address] R23.2 - Elier Faria,FACP O00.01 G47.33 Office Visit 12/12/2015 4:20p [facility] Hyun [place] N.P. [address] J45.901 - [place] J20.9 Office Visit 09/14/2015 10:20a [facility] [place]un [place], N.P. [address] R10.13 - [place] Office Visit 05/17/2015 3:00p [facility] [place]un [place]. [address] H92.01 - [place] B37.0 L72.3 Office Visit 05/02/2015 10:00a [facility] - Ricki Caraballo, [place]NIE [address] E66.9 Z13.1 Z13.220 G47.30 Z72.0 J06.9 Z23 Z00.00 Office Visit 03/07/2015 11:20a [facility] Hyun [place], N.P. [address] D23.9 - [place] R22.1 L91.8 Office Visit 05/11/2013 2:40p [facility] - Esmer Ruffin M.D. [address]87[address] 784.0 [place] 278.00 327.20 787.02 V25.09 Office Visit 02/25/2013 3:20p [facility] - Esmer Ruffin M.D. 33200 789.06 [place] V04.81 Office Visit 01/16/2013 3:30p [facility] Christopher Sk[place], [address] 780.59 [place] 786.09 780.79 Office Visit 01/16/2013 2:40p [facility] - Esmer Ruffin M.D. 68877 278.00 [place] 305.1 Office Visit 12/12/2012 10:20a [facility] - Esmer Ruffin M.D. 37017 305.1 [place] 786.2 307.49 278.00 Office Visit 07/25/2011 1:30p [facility] [place] [address] 300.00 - Elier Faria 132.0 Office Visit 03/22/2011 1:00p DO Not Use Ethics Instructor At Re [place] M.D. 16663 578.1 [facility] 300.00 V72.42 278.00 Plan of Care Future Appointment(s):05/20/2017 1:00 pm - [place] Rodríguez MD at [facility]04/29/2017 - Jeronimo Menezes M.D.H66.92 Otitis media , unspecified, left earNew Medication:Zithromax Z-Diego 250 mg
[2017-05-23 13:06] LABS: ABS Basophils 0 10^3/ul (0-0.2); ABS Eosinophils 0.1 10^3/ul (0-0.6); ABS Lymphocytes 0.8 10^3/ul (1.0-4.8); ABS Monocytes 0.3 10^3/ul (0-0.8); ABS Neutrophils 8.1 10^3/ul (1.5-7.7); ABS Nucleated RBC 0 10^3/ul; Eosinophil % 0.6 % (0-6); Hematocrit 40 % (35-47); Hemoglobin 13.8 g/dl (12.0-16.0); Lymphocyte % 8.3 % (25-47); Mean Corpuscular HGB Conc 35 g/dl (31-36); Mean Corpuscular Hemoglobin 32 pg (27-31); Mean Corpuscular Volume 92 fL (80-97); Mean Platelet Volume 10 um3 (7.4-10.4); Nucleated Red Blood Cells % 0; Platelet Count 203 10^3/ul (150-450); Red Blood Count 4.36 10^6/ul (4.0-5.4); Red Cell Distribution Width 13 % (10.5-15); White Blood Count 9.2 10^3/ul (3.5-10.8)
[2017-05-23 13:16] LABS: EGFR Non-African American 146.9 (>60)
[2017-05-23] MEDS ORDERED: Metoclopramide LIQ* 10 MG/10 ML ORAL.SOLN PO ONE (15:29)
[2017-05-23] MEDS ORDERED: NS 0.9% 1000 ML* 1,000 ML IV ONE (15:35)
[2017-05-23 17:10] VITALS: BP 117/63
--- NOTE | 2017-05-23 17:12 | ED ---
Nausea/Vomiting/Diarrhea HPI - HPI Summary HPI Summary: Patient is a 26-year-old otherwise healthy female who is 14 weeks who presents to the ED with chief complaint of body aches, nausea, vomiting, and one episode diarrhea this morning. Since her first trimester of she has been endorsing nausea and vomiting about once per day. She has Zofran at home, but denies taking any. This is her fifth . She is not feeling movement, but that is normal at 14 weeks. Denies any vaginal bleeding. 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 She has been afebrile at home. Symptoms began 3 days ago, but has improved today. She takes no other medications. She has not taken anything [id number] for relief. Denies any abdominal pain, headache, cough, congestion or other signs of systemic illness. Diarrhea times one was yesterday and normal in color. She has been food and drink, but has decreased PO intake. Denies melena, denies hematemesis. Denies malodorous BM. - History of Current Complaint Chief Complaint: EDNauseaVomitDiarrh Stated Complaint: N/V/14 WKS Time Seen by Provider: 05/23/17 15:09 Hx Obtained From: Patient Hx Last Menstrual Period: 12/19/16 ?: No Onset/Duration: Sudden Onset Timing: Constant Severity Initially: Mild Severity Currently: Mild Pain Intensity: 0 Pain Scale Used: 0-10 Numeric Aggravating Factor(s): Nothing Alleviating Factor(s): Nothing Vomiting Frequency: Daily Nausea/Vomiting Duration: once Vomiting Characteristics: Nonbilious Diarrhea Presence: Yes Diarrhea Frequency: Other - Allergies/Home Medications Allergies/Adverse Reactions: Allergies Allergy/AdvReac Type Severity Reaction Status Date / Time MS Oxycodone [From Percocet] Allergy Hives Verified 05/23/17 13:15 MS Penicillins [PCN] Allergy Hives Verified 05/23/17 13:15 Home Medications: Home Medications Vitamin [Calna] 1 tab PO DAILY 05/23/17 [History Confirmed 05/23/17] PMH/Surg Hx/FS Hx/Imm Hx Previously Healthy: Yes Endocrine/Hematology History: Denies: Hx Anticoagulant Therapy, Hx Diabetes, Hx Thyroid Disease Cardiovascular History: Denies: Hx Congestive Heart Failure, Hx Deep Vein Thrombosis, Hx Hypertension , Hx Myocardial Infarction, Hx Pacemaker/ICD Respiratory History: Reports: Hx Asthma - exercise induced, Hx Sleep Apnea - evaluation 12/2012, Other Respiratory Problems/Disorders - smoker, chronic congestion Denies: Hx Chronic Obstructive Pulmonary Disease (COPD), Hx Lung Cancer, Hx Pneumonia, Hx Pulmonary Embolism GI History: Reports: Hx Gall Bladder Disease - lap kassi. Denies: Hx Gastrointestinal Bleed, Hx Ulcer, Hx Urosepsis, Other GI Disorders History: Denies: Hx Kidney Stones, Hx Renal Disease, Other Problems/Disorders Neurological History: Denies: Hx Dementia, Hx Migraine, Hx Seizures, Hx Transient Ischemic Attacks (TIA) Psychiatric History: Reports: Hx Anxiety, Hx Depression Denies: Hx Schizophrenia, Hx Bipolar Disorder - Surgical History Surgery Procedure, Year, and [place] [place] Immunization History Date of Tetanus Vaccine: unsure Date of Influenza Vaccine: 02/2017 Hx Pertussis Vaccination: No Immunizations Up to Date: Unable to Obtain/Confirm Infectious Disease History: No Infectious Disease History: Denies: Hx Clostridium Difficile, Hx Hepatitis, Hx Human Immunodeficiency Virus (HIV), Hx of Known/Suspected MRSA, Hx Shingles, Hx Tuberculosis, Hx Known/ Suspected VRE, Hx Known/Suspected VRSA, History Other Infectious Disease, Traveled Outside the [place] in Last 30 Days - Family History Known Family History: Positive: Cardiac Disease, Hypertension, Diabetes, Respiratory Disease, Other - ovarian CA - Social History Occupation: Employed Full-time Lives: With Family Alcohol Use: None Hx Substance Use: No Substance Use Type: Reports: None Hx Tobacco Use: Yes Smoking Status (MU): Former Smoker Type: Cigarettes Amount Used/How Often: 1/2 PPD Have You Smoked in the Last Year: Yes Review of Systems Constitutional: Negative Negative: Fever, Chills, Fatigue, Skin Diaphoresis Eyes: Negative Cardiovascular: Negative Positive: Vomiting, Diarrhea, Nausea Genitourinary: Negative Positive: no symptoms reported, see HPI Musculoskeletal: Negative Skin: Negative Neurological: Negative Psychological: Normal All Other Systems Reviewed And Are Negative: Yes Physical Exam Triage Information Reviewed: Yes Vital Signs On Initial Exam: Initial Vitals Temp Pulse Resp BP Pulse Ox 96.8 F 107 18 128/79 95 05/23/17 10:50 05/23/17 10:50 05/23/17 10:50 05/23/17 10:50 05/23/17 10:50 Vital Signs Reviewed: Yes Appearance: Positive: Well-Appearing, No Pain Distress, Well-Nourished Skin: Positive: Warm, Skin Color Reflects Adequate Perfusion Head/Face: Positive: Normal Head/Face Inspection Eyes: Positive: EOMI, MARY, Conjunctiva Clear Neck: Positive: Supple, Nontender, No Lymphadenopathy Respiratory/Lung Sounds: Positive: Clear to Auscultation, Breath Sounds Present Cardiovascular: Positive: Normal, RRR, Pulses are Symmetrical in both Upper and Lower Extremities Abdomen Description: Positive: Soft Bowel Sounds: Positive: Present Musculoskeletal: Positive: Strength/ROM Intact Neurological: Positive: Sensory/Motor Intact, Alert, Oriented to Person Place, Time, Speech Normal Psychiatric: Positive: Normal, Affect/Mood Appropriate AVPU Assessment: Alert Diagnostics - Vital Signs Vital Signs Temp Pulse Resp BP Pulse Ox 05/23/17 16:32 98.7 F 05/23/17 14:40 101.8 F 103 22 141/80 97 05/23/17 10:50 96.8 F 107 18 128/79 95 - Laboratory Lab Results: Lab Results 05/23/17 05/23/17 05/23/17 Range/Units 11:46 12:45 12:45 WBC 9.2 (3.5-10.8) 10^3/ul RBC 4.36 (4.0-5.4) 10^6/ul Hgb 13.8 (12.0-16.0) g/dl Hct 40 (35-47) % MCV 92 (80-97) fL MCH 32 H (27-31) pg MCHC 35 (31-36) g/dl RDW 13 (10.5-15) % Plt Count 203 (150-450) 10^3/ul MPV 10 (7.4-10.4) um3 Neut % (Auto) 87.6 H (38-83) % Lymph % (Auto) 8.3 L (25-47) % [place] % (Auto) 3.3 (1-9) % Eos % (Auto) 0.6 (0-6) % Baso % (Auto) 0.2 (0-2) % Absolute Neuts (auto) 8.1 H (1.5-7.7) 10^3/ul Absolute Lymphs (auto) 0.8 L (1.0-4.8) 10^3/ul Absolute Monos (auto) 0.3 (0-0.8) 10^3/ul Absolute Eos (auto) 0.1 (0-0.6) 10^3/ul Absolute Basos (auto) 0 (0-0.2) 10^3/ul Absolute Nucleated RBC 0 10^3/ul Nucleated RBC % 0 Sodium 135 (133-145) mmol/L Potassium 3.8 (3.5-5.0) mmol/L Chloride 107 (101-111) mmol/L Carbon Dioxide 20 L (22-32) mmol/L Anion Gap 8 (2-11) mmol/L BUN 7 (6-24) mg/dL Creatinine 0.51 (0.51-0.95) mg/dL Est GFR ( Amer) 189.0 (>60) Est GFR (Non-Af Amer) 146.9 (>60) BUN/Creatinine Ratio 13.7 (8-20) Glucose 99 (70-100) mg/dL Lactic Acid (0.5-2.0) mmol/L Calcium 9.3 (8.6-10.3) mg/dL Total Bilirubin 0.40 (0.2-1.0) mg/dL AST 15 (13-39) U/L ALT 17 (7-52) U/L Alkaline Phosphatase 60 (34-104) U/L C-Reactive Protein 5.88 H (< 5.00) mg/L Total Protein 7.2 (6.4-8.9) g/dL Albumin 4.0 (3.2-5.2) g/dL Globulin 3.2 (2-4) g/dL Albumin/Globulin Ratio 1.3 (1-3) Influenza A (Rapid) Negative (Negative) Influenza B (Rapid) Negative (Negative) 05/23/17 Range/Units 12:45 WBC (3.5-10.8) 10^3/ul RBC (4.0-5.4) 10^6/ul Hgb (12.0-16.0) g/dl Hct (35-47) % MCV (80-97) fL MCH (27-31) pg MCHC (31-36) g/dl RDW (10.5-15) % Plt Count (150-450) 10^3/ul MPV (7.4-10.4) um3 Neut % (Auto) (38-83) % Lymph % (Auto) (25-47) % [place] % (Auto) (1-9) % Eos % (Auto) (0-6) % Baso % (Auto) (0-2) % Absolute Neuts (auto) (1.5-7.7) 10^3/ul Absolute Lymphs (auto) (1.0-4.8) 10^3/ul Absolute Monos (auto) (0-0.8) 10^3/ul Absolute Eos (auto) (0-0.6) 10^3/ul Absolute Basos (auto) (0-0.2) 10^3/ul Absolute Nucleated RBC 10^3/ul Nucleated RBC % Sodium (133-145) mmol/L Potassium (3.5-5.0) mmol/L Chloride (101-111) mmol/L Carbon Dioxide (22-32) mmol/L Anion Gap (2-11) mmol/L BUN (6-24) mg/dL Creatinine (0.51-0.95) mg/dL Est GFR ( Amer) (>60) Est GFR (Non-Af Amer) (>60) BUN/Creatinine Ratio (8-20) Glucose (70-100) mg/dL Lactic Acid 0.6 (0.5-2.0) mmol/L Calcium (8.6-10.3) mg/dL Total Bilirubin (0.2-1.0) mg/dL AST (13-39) U/L ALT (7-52) U/L Alkaline Phosphatase (34-104) U/L C-Reactive Protein (< 5.00) mg/L Total Protein (6.4-8.9) g/dL Albumin (3.2-5.2) g/dL Globulin (2-4) g/dL Albumin/Globulin Ratio (1-3) Influenza A (Rapid) (Negative) Influenza B (Rapid) (Negative) Result Diagrams: 05/23/17 12:45 05/23/17 12:45 Lab Statement: Any lab studies that have been ordered have been reviewed, and results considered in the medical decision making process. Naus/Vom/Diarrhea Course/Dx - Course Course Of Treatment: Patient is evaluated for nausea, vomiting, diarrhea 1 day. She has been feeling ill for 3 days. Endorses sick contacts, specifically the flu. On arrival. The obtained and negative for influenza A and influenza B. She is afebrile. Denies any fevers, sweats, chills at home. Denies eating anything abnormal. She endorses nausea vomiting daily times several weeks due to her , but today he notes to diarrhea as well and wanted to be checked for influenza. She did not receive the flu vaccine this year. She was tachycardia at 107 on arrival so given 1 L normal saline with a decrease to 90 prior to discharge. She remains afebrile throughout the course of treatment. She is feeling much improved after normal saline and Reglan 10 mg given by mouth. She is discharged with return precautions and will follow up with FRONT OFFICE CLERK next week. She will return for any worsening or changing symptoms. - Differential Dx/Diagnosis Provider Diagnoses: Gastroenteritis Condition At Discharge: Stable Discharge - Discharge Plan Condition: Stable Disposition: HOME Prescriptions: Metoclopramide TAB* [Reglan TAB*] 10 mg PO Q8H #15 tab Patient Education Materials: Gastroenteritis (ED) Referrals: Tonia Dykes MD [Primary Care Provider] - Additional Instructions: Please follow up with FRONT OFFICE CLERK I have given you a prescription for Reglan This medication is safe in Please drink plenty of fluids Eat small amounts at a time including chicken noodle soup, applesauce, bananas, rice, toast Tylenol 650 mg for any body aches or fevers I believe you have a gastroenteritis which is a viral infection He should begin to feel better in approximately 24 hours
== END 2017-05-23 17:09 | disposition home or self-care (01) ==
LOC: ED 10:49
DX: O99.611 Diseases of the digestive system complicating pregnancy, first trimester (principal); Z3A.14 14 weeks gestation of pregnancy; K52.9 Noninfective gastroenteritis and colitis, unspecified; Z87.891 Personal history of nicotine dependence
CPT/HCPCS: 36415; 80053; 83605; 85025; 86140; 87502; 96360; 99282

== ENCOUNTER 2017-10-18 12:12 | Inpatient (IN) | payer OTHER ==
[2017-10-18] MEDS ORDERED: Oxytocin in LR* 20 UNITS/1,000 ML BAG IVPB ONE (14:11)
[2017-10-18 14:12] LABS: ABS Basophils 0 10^3/ul (0-0.2); ABS Eosinophils 0 10^3/ul (0-0.6); ABS Lymphocytes 1.7 10^3/ul (1.0-4.8); ABS Monocytes 0.7 10^3/ul (0-0.8); ABS Neutrophils 8.5 10^3/ul (1.5-7.7); ABS Nucleated RBC 0 10^3/ul; Eosinophil % 0.2 % (0-6); Hematocrit 33 % (35-47); Hemoglobin 11.1 g/dl (12.0-16.0); Lymphocyte % 15.2 % (25-47); Mean Corpuscular HGB Conc 34 g/dl (31-36); Mean Corpuscular Hemoglobin 31 pg (27-31); Mean Corpuscular Volume 92 fL (80-97); Mean Platelet Volume 10.3 um3 (7.4-10.4); Nucleated Red Blood Cells % 0.2; Platelet Count 139 10^3/ul (150-450); Red Cell Distribution Width 12 % (10.5-15); White Blood Count 10.9 10^3/ul (3.5-10.8)
[2017-10-18] MEDS ORDERED: Oxytocin in LR* 20 UNITS/1,000 ML BAG IVPB SCH ×2 (16:00→23:00)
[2017-10-18] MEDS ORDERED: ceFAZolin 1 GM VIAL(*) ONE (17:03)
--- NOTE | 2017-10-18 17:15 | HP ---
General Information - General Information Maternal Age: 27 Grav: 7 Para: 4 SAB: 0 IEA: 2 Estimated Due Date: 11/17/17 Determined By: LMP Gestational Age in Weeks and Days: 35 Weeks and 5 Days Maternal Blood Type and Rh: O Positive - Results this Serology/RPR Result: Non-Reactive Rubella Result: Immune HBsAg Result: Negative HIV Result: Negative Past Medical History Delivery History: Hx Uncomplicated Vaginal Delivery - x4 Pertinent Past Medical History: See Records - anxiety, depression, asthma Pertinent Past Surgical History: See Records - cholecystectomy Pertinent Family History: See Records - sister with DVT - Antepartal Records Antepartal Records: Reviewed, Complicated by: - IUGR (7%), oligohydraminos (5+) today. Review of Systems Constitutional: Comfortable CV Complaint: No Respiratory: Shortness of Breath: No Gastrointestinal: No Nausea/Vomiting, Normal Bowel Movement Genitourinary: No Dysuria, No Bleeding, No Leaking Fluid Musculoskeletal: No Complaint Neurological: No Headache Movement: Normal Exam Allergies/Adverse Reactions: Allergies oxycodone Allergy (Verified 10/16/17 10:39) Hives Penicillins Allergy (Verified 10/16/17 10:39) Hives 131/73, 98.1, P93 Lab Values - Entire Visit: Laboratory Tests 10/18/17 10/18/17 13:45 13:45 WBC 10.9 H RBC 3.60 L Hgb 11.1 L Hct 33 L MCV 92 MCH 31 MCHC 34 RDW 12 Plt Count 139 L MPV 10.3 Neut % (Auto) 78.1 Lymph % (Auto) 15.2 L [place] % (Auto) 6.3 Eos % (Auto) 0.2 Baso % (Auto) 0.2 Absolute Neuts (auto) 8.5 H Absolute Lymphs (auto) 1.7 Absolute Monos (auto) 0.7 Absolute Eos (auto) 0 Absolute Basos (auto) 0 Absolute Nucleated RBC 0 Nucleated RBC % 0.2 Blood Type O Positive Antibody Screen Negative - Measurements Height: 5 ft 4 in Weight: 238 lb Weight in lbs: [id number] Body Mass Index (BMI): 40.8 Pre- Weight: 244 lb Weight Gained This : -6 lbs and 0 ozs - Exam Abdomen: No Upper Quadrant Pain Breast: Breast Exam Deferred Heart: Normal Rhythm/Heart Sounds HEENT: No Significant Findings Lungs: Clear Bilaterally Rectal: Rectal Exam Deferred - Abdominal Exam Abdomen Exam: Non-Tender - Ultrasound/Biophysical Profile Biophysical Profile - Points Available: 10 Points - (sono in office) Targeted Exam Findings Estimated Weight: 5lbs Cervical Exam: 1cm - Exam in office Station: -2 Presenting Part: Vertex Membrane Status: Intact EFM Findings - External Monitor Findings Baseline Heart Rate: 140 External Monitor Findings: Accelerations Present, No Pattern of Variable or Late Decelerations, Variability Moderate Contractions: None Assessment/Plan - Reason for Visit Reason for Visit: 35+5 wks with IUGR (7th percentile) and borderline oligohydramnios in office today. Pt without complaints, very reassuring testing today. Pt received betamethasone x2 this week. - Obstetrical Risk Factors Obstetrical Risk Factors: GBS Unknown, Risk Factors Comment: IUGR, oligohydramnios - Plan Plan: Induction Plan Comment: Induction of labor per Dr. Rinaldi's recommendation today. Considering multiparous, will start pitocin and plan AROM to induce. Pt will likely want epidural. Will give Abx since pt's GBS was only tested today and she is . - Date/Time of Admission Date of Admission: 10/18/17 Time of Admission: 13:00
[2017-10-18] MEDS ORDERED: ceFAZolin 1 GM in Dextrose (*) 1 GM/50 ML BAG IVPB SCH (17:30)
[2017-10-18] MEDS: ceFAZolin 1 GM VIAL(*) 1 GM in NS 0.9% 50 ML* 50 ML IVPB SCH ×2 (17:43→17:46)
[2017-10-18] MEDS ORDERED: OBEPIDURAL* 250 ML EPIDURAL ONE (18:12)
[2017-10-18] MEDS ORDERED: EPHEDrine (Pressors)* 50 MG/ML VIAL IV PUSH PRN ×2 (19:19)
[2017-10-18] MEDS ORDERED: Sodium Citrate/Citric Acid* 15 ML UDC PO PRN (19:19)
[2017-10-18] MEDS ORDERED: Famotidine TAB* 20 MG PO PRN (19:19)
[2017-10-18] MEDS ORDERED: Phenylephrine IV* 40 MCG/ML 10 ML SYRINGE IV PUSH PRN ×2 (19:19)
[2017-10-18] MEDS ORDERED: OBEPIDURAL* 250 ML EPIDURAL SCH (20:00)
[2017-10-18] MEDS ORDERED: Witch Hazel PAD* JAR TOPICAL PRN (22:38)
[2017-10-18] MEDS ORDERED: Dibucaine 1% 28.35 GM TUBE PR PRN (22:38)
[2017-10-18] MEDS ORDERED: Acetaminophen TAB* 325 MG PO PRN (22:38)
[2017-10-18] MEDS: Ibuprofen TAB* 600 MG PO PRN (23:13)
--- NOTE | 2017-10-18 23:55 | PROCNOTE ---
[facility] OB: Delivery Note - Delivery A Date of : 10/18/17 Time of : 22:26 Weight at : 4 lb 13 oz Score 1 Minute: 8 Score 5 Minutes: 8 Gestational Age in Weeks and Days at Delivery: 35 Weeks and 5 Days Delivery Method: Spontaneous Vaginal Labor: Induced Amniotic Fluid: Clear Estimated Blood Loss: 200 Anesthesia/Analgesia: CEI for Labor Delivered By: Chandra Stone - Nursery Level of Nursery: Regular/Bedside - Perineum Perineal Injury: None/Intact Perineal Repair: None - Events Delivery Events of Note: Pitocin During Labor, Full Course of Antibiotics
[2017-10-19 06:23] LABS: ABS Basophils 0 10^3/ul (0-0.2); ABS Eosinophils 0.1 10^3/ul (0-0.6); ABS Lymphocytes 2.3 10^3/ul (1.0-4.8); ABS Monocytes 1.2 10^3/ul (0-0.8); ABS Neutrophils 8.6 10^3/ul (1.5-7.7); ABS Nucleated RBC 0 10^3/ul; Eosinophil % 0.7 % (0-6); Hematocrit 32 % (35-47); Hemoglobin 10.8 g/dl (12.0-16.0); Lymphocyte % 18.9 % (25-47); Mean Corpuscular HGB Conc 34 g/dl (31-36); Mean Corpuscular Hemoglobin 31 pg (27-31); Mean Corpuscular Volume 91 fL (80-97); Mean Platelet Volume 10.2 um3 (7.4-10.4); Nucleated Red Blood Cells % 0; Platelet Count 145 10^3/ul (150-450); Red Blood Count 3.48 10^6/ul (4.00-5.40); Red Cell Distribution Width 12 % (10.5-15); White Blood Count 12.2 10^3/ul (3.5-10.8)
[2017-10-19] MEDS ORDERED: Ferrous Gluconate TAB* 324 MG TAB PO SCH (09:00)
[2017-10-19] MEDS: Docusate CAP* 100 MG PO SCH ×2 (09:12→20:16)
[2017-10-19] MEDS: Simethicone TAB* 80 MG TAB.CHEW PO SCH ×2 (09:13→12:30)
[2017-10-20 08:20] VITALS: BP 109/56
[2017-10-20] MEDS: Ibuprofen TAB* 600 MG PO PRN (08:49)
[2017-10-20] MEDS: Docusate CAP* 100 MG PO SCH (08:50)
== END 2017-10-20 14:26 | disposition home or self-care (01) | DRG 560 ==
LOC: MCHOBOUT 12:12 → MCHOB 13:17
PROVIDERS: ADMIT Obstetrics & Gynecology; ATTEND Obstetrics & Gynecology
PROC: 10907ZC Drainage of Amniotic Fluid, Therapeutic from Products of Conception, Via Natural or Artificial Opening (ICD-10-PCS; principal; 2017-10-18)
PROC: 3E033VJ Introduction of Other Hormone into Peripheral Vein, Percutaneous Approach (ICD-10-PCS; 2017-10-18)
PROC: 10E0XZZ Delivery of Products of Conception, External Approach (ICD-10-PCS; 2017-10-18)
PROC: 4A1HXCZ Monitoring of Products of Conception, Cardiac Rate, External Approach (ICD-10-PCS; 2017-10-18)
DX: O36.5930 Maternal care for other known or suspected poor fetal growth, third trimester, not applicable or unspecified (principal); O60.14X0 Preterm labor third trimester with preterm delivery third trimester, not applicable or unspecified; O41.03X0 Oligohydramnios, third trimester, not applicable or unspecified; Z68.41 Body mass index [BMI] 40.0-44.9, adult; O99.214 Obesity complicating childbirth; Z37.0 Single live birth; Z90.49 Acquired absence of other specified parts of digestive tract; Z88.5 Allergy status to narcotic agent; Z88.0 Allergy status to penicillin; Z3A.35 35 weeks gestation of pregnancy; Z88.6 Allergy status to analgesic agent
CPT/HCPCS: 36415; 85025; 86850; 86900; 86901; A9270-GY; J0690

== ENCOUNTER 2017-11-08 14:31 | Emergency (ER) | payer OTHER ==
[2017-11-08] MEDS ORDERED: NS 0.9% 1000 ML* 1,000 ML IV ONE (16:17)
[2017-11-08 17:14] LABS: ABS Basophils 0.1 10^3/ul (0-0.2); ABS Eosinophils 0.3 10^3/ul (0-0.6); ABS Lymphocytes 2.1 10^3/ul (1.0-4.8); ABS Monocytes 0.4 10^3/ul (0-0.8); ABS Neutrophils 5.1 10^3/ul (1.5-7.7); ABS Nucleated RBC 0 10^3/ul; Eosinophil % 3.3 % (0-6); Hematocrit 39 % (35-47); Hemoglobin 12.5 g/dl (12.0-16.0); INR 0.9 (0.77-1.02); Lymphocyte % 26.3 % (25-47); Mean Corpuscular HGB Conc 32 g/dl (31-36); Mean Corpuscular Hemoglobin 31 pg (27-31); Mean Corpuscular Volume 97 fL (80-97); Mean Platelet Volume 9.6 um3 (7.4-10.4); Nucleated Red Blood Cells % 0.1; Platelet Count 197 10^3/ul (150-450); Red Blood Count 4.06 10^6/ul (4.00-5.40); Red Cell Distribution Width 13 % (10.5-15); White Blood Count 7.9 10^3/ul (3.5-10.8)
[2017-11-08 17:19] LABS: EGFR Non-African American 83.1 (>60)
--- NOTE | 2017-11-08 17:57 | ED ---
GI/ HPI - HPI Summary HPI Summary: This is jamie Plata documenting for attending Shamar Lora M.D. Pt is a 27 y/o F w/ c/o heavy vaginal bleeding onsetting yesterday. She is 3 weeks post with bleeding after . Heavy bleeding onset was yesterday. She also reports light-headedness and dizziness. Pt notes that she has not passed any clots. She denies abdominal pain. On triage pain is denied and it is noted movement and standing exacerbates dizziness. Nothing is noted to alleviate Sx. Pt delivered baby 5 weeks premature. Most recent delivery was her 5th child. She reports that she stopped breast feeding a week ago. - History of Current Complaint Chief Complaint: EDVaginalBleeding Time Seen by Provider: 11/08/17 16:08 Stated Complaint: VAGINAL BLEEDING Hx Obtained From: Patient Hx Last Menstrual Period: 12/19/16 Onset/Duration: Started Days Ago - heavy bleeding, dizziness, light-headedness onset yesterday Timing: Constant Current Severity: None - pain is denied. Pain Intensity: 0 Associated Signs and Symptoms: Positive: Dizziness - light headedness. Negative : Abdominal Pain Additional Signs & Symptoms: Positive: Vaginal Bleeding - heavy Aggravating Factor(s): Movement - aggravates dizziness; standing aggravates dizziness as well. Alleviating Factor(s): Nothing - Allergy/Home Medications Allergies/Adverse Reactions: Allergies Allergy/AdvReac Type Severity Reaction Status Date / Time oxycodone Allergy Hives Verified 11/08/17 14:46 Penicillins Allergy Hives Verified 11/08/17 14:46 Home Medications: Home Medications Vit No.129/Iron/Folic [ One Daily] 1 tab PO DAILY 11/08/17 [ History Confirmed 11/08/17] PMH/Surg Hx/FS Hx/Imm Hx Endocrine/Hematology History: Denies: Hx Anticoagulant Therapy, Hx Diabetes, Hx Thyroid Disease Cardiovascular History: Denies: Hx Congestive Heart Failure, Hx Deep Vein Thrombosis, Hx Hypertension , Hx Myocardial Infarction, Hx Pacemaker/ICD Respiratory History: Reports: Hx Asthma - exercise induced, Hx Sleep Apnea - evaluation 12/2012, Other Respiratory Problems/Disorders - smoker, chronic congestion Denies: Hx Chronic Obstructive Pulmonary Disease (COPD), Hx Lung Cancer, Hx Pneumonia, Hx Pulmonary Embolism GI History: Reports: Hx Gall Bladder Disease - lap kassi. Denies: Hx Gastrointestinal Bleed, Hx Ulcer, Hx Urosepsis, Other GI Disorders History: Denies: Hx Kidney Stones, Hx Renal Disease, Other Problems/Disorders Neurological History: Denies: Hx Dementia, Hx Migraine, Hx Seizures, Hx Transient Ischemic Attacks (TIA) Psychiatric History: Reports: Hx Anxiety, Hx Depression Denies: Hx Schizophrenia, Hx Bipolar Disorder - Surgical History Surgery Procedure, Year, and Place: 2010-[facility]assi[facility] - Immunization History Date of Tetanus Vaccine: unsure Date of Influenza Vaccine: 02/2017 Infectious Disease History: No Infectious Disease History: Denies: Hx Clostridium Difficile, Hx Hepatitis, Hx Human Immunodeficiency Virus (HIV), Hx of Known/Suspected MRSA, Hx Shingles, Hx Tuberculosis, Hx Known/ Suspected VRE, Hx Known/Suspected VRSA, History Other Infectious Disease, Traveled Outside the [place] in Last 30 Days - Family History Known Family History: Positive: Cardiac Disease, Hypertension, Diabetes, Respiratory Disease, Other - ovarian CA - Social History Alcohol Use: None Hx Substance Use: No Substance Use Type: Reports: None Hx Tobacco Use: Yes Smoking Status (MU): Former Smoker Type: Cigarettes Amount Used/How Often: 1/2 PPD Have You Smoked in the Last Year: Yes Review of Systems Negative: Abdominal Pain Positive: other - heavy vaginal bleeding Neurological: Other - dizziness, light-headedness All Other Systems Reviewed And Are Negative: Yes Physical Exam - Summary Physical Exam Summary: GENERAL: Patient is a well developed and nourished female who is lying comfortable in the stretcher. Patient is not in any acute respiratory distress. HEAD AND FACE: Normocephalic EYES: PERRLA, EOMI x 2. EARS: Hearing grossly intact. MOUTH: Oropharynx within normal limits. NECK: Supple, trachea is midline, no adenopathy, no JVD, no carotid bruit. CHEST: Symmetric, no tenderness at palpation LUNGS: Clear to auscultation bilaterally. No wheezing or crackles. CVS: Regular rate and rhythm, S1 and S2 present, no murmurs or gallops appreciated. ABDOMEN: Soft, non-tender. Bowel sounds are normal. No abdominal abnormal pulsations. : Blood in the vaginal vault without clots, no evidence of hemorrhaging EXTREMITIES: Full ROM in all major joints, no edema, no cyanosis or clubbing. NEURO: Alert and oriented x 3. No acute neurological deficits. Speech is normal and follows commands. SKIN: Dry and warm Triage Information Reviewed: Yes Vital Signs On Initial Exam: Initial Vitals Temp Pulse Resp BP Pulse Ox 97.3 F 74 18 114/75 100 11/08/17 14:47 11/08/17 14:47 11/08/17 14:47 11/08/17 14:47 11/08/17 14:47 Vital Signs Reviewed: Yes Diagnostics - Vital Signs Vital Signs Temp Pulse Resp BP Pulse Ox 11/08/17 17:00 59 100 11/08/17 16:19 61 98 11/08/17 14:47 97.3 F 74 18 114/75 100 - Laboratory Lab Results: Lab Results 11/08/17 11/08/17 11/08/17 Range/Units 16:39 16:39 16:39 WBC 7.9 (3.5-10.8) 10^3/ul RBC 4.06 (4.00-5.40) 10^6/ul Hgb 12.5 (12.0-16.0) g/dl Hct 39 (35-47) % MCV 97 (80-97) fL MCH 31 (27-31) pg MCHC 32 (31-36) g/dl RDW 13 (10.5-15) % Plt Count 197 (150-450) 10^3/ul MPV 9.6 (7.4-10.4) um3 Neut % (Auto) 64.4 (38-83) % Lymph % (Auto) 26.3 (25-47) % [place] % (Auto) 5.0 (0-7) % Eos % (Auto) 3.3 (0-6) % Baso % (Auto) 1.0 (0-2) % Absolute Neuts (auto) 5.1 (1.5-7.7) 10^3/ul Absolute Lymphs (auto) 2.1 (1.0-4.8) 10^3/ul Absolute Monos (auto) 0.4 (0-0.8) 10^3/ul Absolute Eos (auto) 0.3 (0-0.6) 10^3/ul Absolute Basos (auto) 0.1 (0-0.2) 10^3/ul Absolute Nucleated RBC 0 10^3/ul Nucleated RBC % 0.1 INR (Anticoag Therapy) 0.90 (0.77-1.02) APTT 34.2 (26.0-36.3) seconds Sodium 136 (135-145) mmol/L Potassium 3.9 (3.5-5.0) mmol/L Chloride 105 (101-111) mmol/L Carbon Dioxide 23 (22-32) mmol/L Anion Gap 8 (2-11) mmol/L BUN 19 (6-24) mg/dL Creatinine 0.83 (0.51-0.95) mg/dL Est GFR ( Amer) 100.5 (>60) Est GFR (Non-Af Amer) 83.1 (>60) BUN/Creatinine Ratio 22.9 H (8-20) Glucose 85 (70-100) mg/dL Calcium 9.0 (8.6-10.3) mg/dL Total Bilirubin 0.30 (0.2-1.0) mg/dL AST 12 L (13-39) U/L ALT 12 (7-52) U/L Alkaline Phosphatase 76 (34-104) U/L Total Protein 6.6 (6.4-8.9) g/dL Albumin 3.7 (3.2-5.2) g/dL Globulin 2.9 (2-4) g/dL Albumin/Globulin Ratio 1.3 (1-3) Result Diagrams: 18 16:39 18 16:39 Lab Statement: Any lab studies that have been ordered have been reviewed, and results considered in the medical decision making process. Re-Evaluation - Re-Evaluation First Eval Re-Evaluation Time: 17:44 Comment: Dr. Lora performed a exam on Pt. It was noted that there was some blood in vaginal vulva, but no clots were seen and no evidence of hemorrhaging. GIGU Course/Dx - Course Assessment/Plan: Pt is a 27 y/o F w/ c/o heavy vaginal bleeding onsetting yesterday. She is 3 weeks post with bleeding after . Heavy bleeding onset was yesterday. She also reports light-headedness and dizziness. Pt notes that she has not passed any clots. She denies abdominal pain. On triage pain is denied and it is noted movement and standing exacerbates dizziness. Nothing is noted to alleviate Sx. Physical exam was normal. At 17:44 , Dr. Lora performed a exam on Pt. It was noted that there was some blood in vaginal vuault with evidence of hemorrhaging. H+H stable. Pt was discharged to home in stable condition with a diagnosis of vaginal bleeding. Pt was instructred to follow up with PATIENT ACCESS REGISTRAR in two days and to return to ED for any new or worsening Sx. - Diagnoses Provider Diagnoses: Vaginal bleeding Discharge - Sign-Out/Discharge Documenting (check all that apply): Patient Departure - discharge - Discharge Plan Condition: Stable Disposition: HOME Patient Education Materials: Bleeding (ED) Referrals: Tonia Dykes MD [Primary Care Provider] - 2 Days Additional Instructions: Return to ED for any new or worsening symptoms. - Billing Disposition and Condition Condition: STABLE Disposition: Home
[2017-11-08 18:45] VITALS: BP 111/60
== END 2017-11-08 18:44 | disposition home or self-care (01) ==
LOC: ED 14:31
DX: O72.2 Delayed and secondary postpartum hemorrhage (principal); R42 Dizziness and giddiness; Z90.49 Acquired absence of other specified parts of digestive tract; Z88.5 Allergy status to narcotic agent; Z88.0 Allergy status to penicillin; Z82.49 Family history of ischemic heart disease and other diseases of the circulatory system; Z83.3 Family history of diabetes mellitus; Z83.6 Family history of other diseases of the respiratory system; Z80.41 Family history of malignant neoplasm of ovary; Z87.891 Personal history of nicotine dependence
CPT/HCPCS: 36415; 80053; 85025; 85610; 85730; 96360; 99283

== ENCOUNTER 2018-04-16 17:39 | Emergency (ER) | payer OTHER ==
[2018-04-16 18:08] VITALS: BP 127/81
--- NOTE | 2018-04-16 18:29 | UC ---
Hip/Pelvis Pain - HPI Summary HPI Summary: left low back pain began 4 days ago after sweeping the floor, she also has been working out a lot-----no trauma or fall--no similar pain in the past - History Of Current Complaint Chief Complaint: UCBackPain Stated Complaint: HIP INJURY Time Seen by Provider: 04/16/18 18:18 Hx Obtained From: Patient Hx Last Menstrual Period: IUD, 2 months ago ?: No Mechanism Of Injury: sweeping the floor Onset/Duration: Sudden Onset, Lasting Days - 4, Still Present Timing: Constant Pain Intensity: 6 Pain Scale Used: 0-10 Numeric Location: Discrete At: Character Of Pain: Spasmodic Aggravating Factor(s): Movement Alleviating Factor(s): Nothing Associated Signs And Symptoms: Positive: Negative - Allergies/Home Medications Allergies/Adverse Reactions: Allergies Allergy/AdvReac Type Severity Reaction Status Date / Time oxycodone Allergy Hives Verified 04/16/18 18:09 Penicillins Allergy Hives Verified 04/16/18 18:09 PMH/Surg Hx/FS Hx/Imm Hx Previously Healthy: Yes Other History Of: Negative For: HIV, Hepatitis B, Hepatitis C, Anticoagulant Therapy - Surgical History Surgical History: Yes Surgery Procedure, Year, and Place: 2010-[facility] - Family History Known Family History: Positive: Cardiac Disease, Hypertension, Diabetes, Respiratory Disease, Other - ovarian CA - Social History Occupation: Employed Full-time Lives: With Family Alcohol Use: Occasionally Substance Use Type: None Smoking Status (MU): Former Smoker Type: Cigarettes Amount Used/How Often: 1/2 PPD Have You Smoked in the Last Year: Yes When Did the Patient Quit Smoking/Using Tobacco: 09/2013 Household Exposure Type: Cigarettes - Immunization History Most Recent Influenza Vaccination: 01/02/16 Most Recent Tetanus Shot: unsure Most Recent Pneumonia Vaccination: unknown Review of Systems All Other Systems Reviewed And Are Negative: Yes Constitutional: Positive: Negative Skin: Positive: Negative Eyes: Positive: Negative ENT: Positive: Negative Respiratory: Positive: Negative Cardiovascular: Positive: Negative Gastrointestinal: Positive: Negative Genitourinary: Positive: Negative Motor: Positive: Negative Neurovascular: Positive: Negative Musculoskeletal: Positive: Myalgia - left low back lateral (love handle area ) pain Neurological: Positive: Negative Psychological: Positive: Negative Is Patient Immunocompromised?: No Physical Exam Triage Information Reviewed: Yes Appearance: Well-Appearing, No Pain Distress, Obese Vital Signs: Initial Vital Signs Temp 98.7 F 04/16/18 18:06 Pulse 93 04/16/18 18:06 Resp 18 04/16/18 18:06 BP 127/81 04/16/18 18:06 Pulse Ox 99 04/16/18 18:06 Vital Signs Reviewed: Yes Eye Exam: Normal Eyes: Positive: Conjunctiva Clear ENT Exam: Normal ENT: Positive: Normal ENT inspection, Hearing grossly normal. Negative: Trismus , Muffled voice, Hoarse voice Dental Exam: Normal Neck exam: Normal Neck: Positive: Supple, Nontender, No Lymphadenopathy Respiratory Exam: Normal Respiratory: Positive: Chest non-tender, Lungs clear, Normal breath sounds, No respiratory distress, No accessory muscle use Cardiovascular Exam: Normal Cardiovascular: Positive: RRR, No Murmur, Pulses Normal, Brisk Capillary Refill Abdomen Description: Negative: CVA Tenderness (R), CVA Tenderness (L) Musculoskeletal Exam: Normal Musculoskeletal: Positive: Strength Intact, ROM Intact, No Edema Neurological Exam: Normal Neurological: Positive: Alert, Muscle Tone Normal Psychological Exam: Normal Skin Exam: Normal Hip Injury Course/Dx - Course Course Of Treatment: gental stretching and exercise, cool compress, ibuipren flexeril follow with pcp prn - Differential Dx/Diagnosis Provider Diagnosis: Acute left-sided low back pain, Back muscle spasm Discharge - Sign-Out/Discharge Documenting (check all that apply): Patient Departure All imaging exams completed and their final reports reviewed: No Studies - Discharge Plan Condition: Stable Disposition: HOME Prescriptions: Cyclobenzaprine TAB* [Flexeril 10 MG TAB*] 10 mg PO TID PRN #15 tab PRN Reason: MUSCLE SPASM Ibuprofen TAB* [Motrin TAB* 600 MG] 600 mg PO Q6H PRN #30 tab PRN Reason: HIP PAIN Patient Education Materials: Muscle Spasm (ED), Hip Pain (ED) Referrals: Tonia Dykes MD [Primary Care Provider] - If Needed - Billing Disposition and Condition Condition: STABLE Disposition: Home
== END 2018-04-16 18:42 | disposition home or self-care (01) ==
LOC: UCEAST 17:39
DX: M54.5 Low back pain (principal); M62.830 Muscle spasm of back; Z88.5 Allergy status to narcotic agent; Z88.0 Allergy status to penicillin; Z87.891 Personal history of nicotine dependence
CPT/HCPCS: 99212; G0463

== ENCOUNTER 2018-09-16 16:23 | Emergency (ER) | payer OTHER ==
[2018-09-16] MEDS ORDERED: Ondansetron INJ* 2 MG/ML VIAL IV ONE (17:08)
[2018-09-16] MEDS ORDERED: NS 0.9% 1000 ML** 1,000 ML IV ONE (17:08)
[2018-09-16 17:09] LABS: ABS Eosinophils 0.2 10^3/ul (0-0.6); ABS Lymphocytes 2.2 10^3/ul (1.0-4.8); ABS Monocytes 0.5 10^3/ul (0-0.8); ABS Neutrophils 3.9 10^3/ul (1.5-7.7); Eosinophil % 3.4 %; Hematocrit 39 % (35-47); Hemoglobin 12.9 g/dL (12.0-16.0); Mean Corpuscular HGB Conc 33 g/dL (31-36); Mean Corpuscular Hemoglobin 31 pg (27-31); Mean Corpuscular Volume 93 fL (80-97); Mean Platelet Volume 9.7 fL (7.4-10.4); Nucleated Red Blood Cells % 0.1; Platelet Count 200 10^3/uL (150-450); Red Cell Distribution Width 13 % (10.5-15); White Blood Count 6.7 10^3/uL (3.5-10.8)
[2018-09-16 17:09] LABS: Urine Appearance Clear; Urine Bilirubin Negative (Negative); Urine Blood Negative (Negative); Urine Color Straw; Urine Glucose Negative (Negative); Urine Ketones Negative (Negative); Urine Nitrite Negative (Negative); Urine Protein Negative (Negative); Urine Specific Gravity 1.005 (1.010-1.030); Urine Urobilinogen Negative (Negative)
[2018-09-16 17:28] LABS: Albumin 4.4 g/dL (3.2-5.2); Albumin/Globulin Ratio 1.8 (1-3); BUN/Creatinine Ratio 14.1 (8-20); C Reactive Protein 3.19 mg/L (<8.01); Calcium 9.3 mg/dL (8.6-10.3); EGFR African American 107.2 (>60); EGFR Non-African American 88.6 (>60); Globulin 2.4 g/dL (2-4); Potassium 3.5 mmol/L (3.5-5.0); Total Bilirubin 0.3 mg/dL (0.2-1.0); Total Protein 6.8 g/dL (6.4-8.9)
[2018-09-16 17:33] LABS: HCG Pregnancy 2.23 mIU/mL
--- NOTE | 2018-09-16 19:41 | ED ---
Back Pain - HPI Summary HPI Summary: Patient complains of right flank pain 2 weeks, getting significantly worse today. Right flank pain radiates to back, constant, worse with movement. At worst pain rated 6/10, described as achy. Patient states she took Tylenol 1000 mg at 3 PM with minimal relief. Patient denies trauma event, fever, cough, sore throat, CP, SOB, N/V/D, abdominal pain, change in urine, change in BM. Medical history is HDL, anxiety. Surgical history is cholecystectomy. Denies prior history of kidney stones. - History of Current Complaint Chief Complaint: EDFlankPain Stated Complaint: SIDE/BACK PAIN PER PT Time Seen by Provider: 09/16/18 16:51 Hx Obtained From: Patient Hx Last Menstrual Period: IUD, 2 months ago Onset/Duration: Gradual Onset, Lasting Days Onset/Duration: Started Days Ago Timing: Constant Back Pain Location: Radiates To Severity Initially: Mild Severity Currently: Moderate Pain Intensity: 5 Pain Scale Used: 0-10 Numeric Character: Aching Aggravating Symptom(s): Movement Alleviating Symptom(s): Position Associated Signs And Symptoms: Positive: Negative - Allergies/Home Medications Allergies/Adverse Reactions: Allergies Allergy/AdvReac Type Severity Reaction Status Date / Time oxycodone Allergy Hives Verified 04/16/18 18:09 Penicillins Allergy Hives Verified 04/16/18 18:09 PMH/Surg Hx/FS Hx/Imm Hx Endocrine/Hematology History: Denies: Hx Anticoagulant Therapy, Hx Diabetes, Hx Thyroid Disease Cardiovascular History: Denies: Hx Congestive Heart Failure, Hx Deep Vein Thrombosis, Hx Hypertension , Hx Myocardial Infarction, Hx Pacemaker/ICD Respiratory History: Reports: Hx Asthma - exercise induced, Hx Sleep Apnea - evaluation 12/2012, Other Respiratory Problems/Disorders - smoker, chronic congestion Denies: Hx Chronic Obstructive Pulmonary Disease (COPD), Hx Lung Cancer, Hx Pneumonia, Hx Pulmonary Embolism GI History: Reports: Hx Gall Bladder Disease - lap kassi. Denies: Hx Gastrointestinal Bleed, Hx Ulcer, Hx Urosepsis, Other GI Disorders History: Denies: Hx Kidney Stones, Hx Renal Disease, Other Problems/Disorders Sensory History: Denies: Hx Eye Prosthesis Opthamlomology History: Denies: Hx Legally Blind EENT History: Denies: Hx Deafness Neurological History: Denies: Hx Dementia, Hx Migraine, Hx Seizures, Hx Transient Ischemic Attacks (TIA) Psychiatric History: Reports: Hx Anxiety, Hx Depression Denies: Hx Schizophrenia, Hx Bipolar Disorder - Surgical History Surgery Procedure, Year, and Place: 2010-[facility] - Immunization History Date of Tetanus Vaccine: unsure Date of Influenza Vaccine: 02/2017 Infectious Disease History: No Infectious Disease History: Denies: Hx Clostridium Difficile, Hx Hepatitis, Hx Human Immunodeficiency Virus (HIV), Hx of Known/Suspected MRSA, Hx Shingles, Hx Tuberculosis, Hx Known/ Suspected VRE, Hx Known/Suspected VRSA, History Other Infectious Disease, Traveled Outside the [place] in Last 30 Days - Family History Known Family History: Positive: Cardiac Disease, Hypertension, Diabetes, Respiratory Disease, Other - ovarian CA - Social History Alcohol Use: Occasionally Hx Substance Use: No Substance Use Type: Reports: None Hx Tobacco Use: Yes Smoking Status (MU): Former Smoker Type: Cigarettes Amount Used/How Often: 1/2 PPD Have You Smoked in the Last Year: Yes Review of Systems Constitutional: Negative Eyes: Negative ENT: Negative Cardiovascular: Negative Respiratory: Negative Gastrointestinal: Negative Genitourinary: Negative Musculoskeletal: Negative Skin: Negative Neurological: Negative Psychological: Normal All Other Systems Reviewed And Are Negative: Yes Physical Exam - Summary Physical Exam Summary: Mild tenderness to palpation along bilateral right side lateral ribs and paraspinal tenderness along right side lumbar spine. Abdomen soft nontender. Lung sounds clear to auscultation bilaterally. RRR. No ecchymosis, erythema, deformity, swelling, mass noted to back or right side. No CVA tenderness bilaterally. Triage Information Reviewed: Yes Vital Signs On Initial Exam: Initial Vitals Temp Pulse Resp BP Pulse Ox 97.1 F 76 18 131/70 100 09/16/18 16:31 09/16/18 16:31 09/16/18 16:31 09/16/18 16:31 09/16/18 16:31 Vital Signs Reviewed: Yes Appearance: Positive: Well-Appearing Skin: Positive: Warm Head/Face: Positive: Normal Head/Face Inspection Eyes: Positive: Normal Neck: Positive: Supple Respiratory/Lung Sounds: Positive: Clear to Auscultation Cardiovascular: Positive: Normal Abdomen Description: Positive: Nontender Musculoskeletal: Positive: Normal Neurological: Positive: Normal Psychiatric: Positive: Normal AVPU Assessment: Alert - Hart Coma Scale Best Eye Response: 4 - Spontaneous Best Motor Response: 6 - Obeys Commands Best Verbal Response: 5 - Oriented Coma Scale Total: 15 Diagnostics - Vital Signs Vital Signs Temp Pulse Resp BP Pulse Ox 09/16/18 16:31 97.1 F 76 18 131/70 100 - Laboratory Lab Results: Lab Results 09/16/18 09/16/18 09/16/18 Range/Units 06:32 16:53 17:00 WBC 6.7 (3.5-10.8) 10^3/uL RBC 4.20 (3.70-4.87) 10^6 /uL Hgb 12.9 (12.0-16.0) g/dL Hct 39 (35-47) % MCV 93 (80-97) fL MCH 31 (27-31) pg MCHC 33 (31-36) g/dL RDW 13 (10.5-15) % Plt Count 200 (150-450) 10^3/uL MPV 9.7 (7.4-10.4) fL Neut % (Auto) 57.2 % Lymph % (Auto) 32.0 % [place] % (Auto) 6.8 % Eos % (Auto) 3.4 % Baso % (Auto) 0.6 % Absolute Neuts (auto) 3.9 (1.5-7.7) 10^3/ul Absolute Lymphs (auto) 2.2 (1.0-4.8) 10^3/ul Absolute Monos (auto) 0.5 (0-0.8) 10^3/ul Absolute Eos (auto) 0.2 (0-0.6) 10^3/ul Absolute Basos (auto) 0.0 (0-0.2) 10^3/ul Absolute Nucleated RBC 0.0 10^3/ul Nucleated RBC % 0.1 Sodium 136 (135-145) mmol/L Potassium 3.5 (3.5-5.0) mmol/L Chloride 105 (101-111) mmol/L Carbon Dioxide 28 (22-32) mmol/L Anion Gap 3 (2-11) mmol/L BUN 11 (6-24) mg/dL Creatinine 0.78 (0.51-0.95) mg/dL Est GFR ( Amer) 107.2 (>60) Est GFR (Non-Af Amer) 88.6 (>60) BUN/Creatinine Ratio 14.1 (8-20) Glucose 96 (70-100) mg/dL Calcium 9.3 (8.6-10.3) mg/dL Total Bilirubin 0.30 (0.2-1.0) mg/dL AST 18 (13-39) U/L ALT 18 (7-52) U/L Alkaline Phosphatase 76 (34-104) U/L C-Reactive Protein 3.19 (<8.01) mg/L Total Protein 6.8 (6.4-8.9) g/dL Albumin 4.4 (3.2-5.2) g/dL Globulin 2.4 (2-4) g/dL Albumin/Globulin Ratio 1.8 (1-3) Lipase 16 (11.0-82.0) U/L Beta HCG, Quant 2.23 mIU/mL Urine Color Straw Urine Appearance Clear Urine pH 5.0 (5-9) Ur Specific [place] 1.005 L (1.010-1.030) Urine Protein Negative (Negative) Urine Ketones Negative (Negative) Urine Blood Negative (Negative) Urine Nitrate Negative (Negative) Urine Bilirubin Negative (Negative) Urine Urobilinogen Negative (Negative) Ur Leukocyte Esterase Negative (Negative) Urine Glucose Negative (Negative) Result Diagrams: 09/16/18 17:00 09/16/18 06:32 Lab Statement: Any lab studies that have been ordered have been reviewed, and results considered in the medical decision making process. Back Pain Course/Dx - Course Course Of Treatment: Patient complains of right flank pain 2 weeks, getting significantly worse today. Right flank pain radiates to back, constant, worse with movement. At worst pain rated 6/10, described as achy. Patient states she took Tylenol 1000 mg at 3 PM with minimal relief. Patient denies trauma event, fever, cough, sore throat, CP, SOB, N/V/D, abdominal pain, change in urine, change in BM. Medical history is HDL, anxiety. Surgical history is cholecystectomy. Denies prior history of kidney stones. Physical exam:Mild tenderness to palpation along bilateral right side lateral ribs and paraspinal tenderness along right side lumbar spine. Abdomen soft nontender. Lung sounds clear to auscultation bilaterally. RRR. No ecchymosis, erythema, deformity, swelling, mass noted to back or right side. No CVA tenderness bilaterally. Vital signs within normal limits. Labs unremarkable. Urine negative. CT abdomen and pelvis unremarkable. Diagnosis muscle spasm. Rx for Valium. - Diagnoses Provider Diagnoses: Right flank pain Discharge - Sign-Out/Discharge Documenting (check all that apply): Patient Departure Patient Received Moderate/Deep Sedation with Procedure: No - Discharge Plan Condition: Stable Disposition: HOME Prescriptions: Diazepam TAB(*) [Valium TAB(*)] 5 mg PO TID PRN 2 Days #6 tab MDD 3 tabs PRN Reason: Pain Patient Education Materials: Flank Pain (ED) Referrals: Navdeep Spence [Primary Care Provider] - Additional Instructions: Return to the ED for any new or worsening symptoms. - Billing Disposition and Condition Condition: STABLE Disposition: Home
[2018-09-16] MEDS ORDERED: Ketorolac TAB * 10 MG TAB PO ONE (19:48)
[2018-09-16 20:36] VITALS: BP 101/57
== END 2018-09-16 20:37 | disposition home or self-care (01) ==
LOC: ED 16:23
DX: R10.84 Generalized abdominal pain (principal); Z88.0 Allergy status to penicillin; Z87.891 Personal history of nicotine dependence
CPT/HCPCS: 36415; 74176; 80053; 81003; 83690; 84702; 85025; 86140; 96361; 96374; 99283; J2405

== ENCOUNTER 2018-10-17 20:33 | Emergency (ER) | payer OTHER ==
[2018-10-17 20:50] VITALS: BP 142/90
--- NOTE | 2018-10-17 22:36 | UC ---
Complaint Female HPI - HPI Summary HPI Summary: Tess felt a sharp pain earlier today. Since that time most of the symptoms have resolved and she still has a little bit of crampiness. She has an IUD in place and to not feel the strings. She called her CRAPS MANAGER doctor wanted her to come in for an evaluation in the office which she was traveling and didn't get back to town until this evening. She denies discharge. - History Of Current Complaint Chief Complaint: UCGU Stated Complaint: IUD ISSUE Time Seen by Provider: 10/17/18 20:56 Hx Obtained From: Patient Hx Last Menstrual Period: 10/03/18 Onset/Duration: Sudden Onset Timing: Constant Severity Initially: Moderate Severity Currently: Mild Pain Intensity: 5 Pain Scale Used: 0-10 Numeric Character: Sharp - at first, Cramping - now Aggravating Factor(s): Nothing Alleviating Factor(s): Nothing Associated Signs And Symptoms: Positive: Negative - Allergies/Home Medications Allergies/Adverse Reactions: Allergies Allergy/AdvReac Type Severity Reaction Status Date / Time oxycodone Allergy Hives Verified 10/17/18 20:50 Penicillins Allergy Hives Verified 10/17/18 20:50 Home Medications: Home Medications ALPRAZolam [Xanax] 0.25 mg PO SEE INSTRUCTIONS 10/17/18 [History Confirmed 10/17] Levonorgestrel (Iud) [Mirena IUD] 20 mcg IU ONCE 10/17/18 [History Confirmed ] PMH/Surg Hx/FS Hx/Imm Hx Previously Healthy: Yes Other History Of: Negative For: HIV, Hepatitis B, Hepatitis C, Anticoagulant Therapy - Surgical History Surgical History: Yes Surgery Procedure, Year, and Place: 2010-[facility] - Family History Known Family History: Positive: Cardiac Disease, Hypertension, Diabetes, Respiratory Disease, Other - ovarian CA - Social History Alcohol Use: Occasionally Substance Use Type: None Smoking Status (MU): Former Smoker Type: Cigarettes Amount Used/How Often: 1/2 PPD Have You Smoked in the Last Year: Yes When Did the Patient Quit Smoking/Using Tobacco: 09/2013 Household Exposure Type: Cigarettes - Immunization History Most Recent Influenza Vaccination: 01/02/16 Most Recent Tetanus Shot: unsure Most Recent Pneumonia Vaccination: unknown Review of Systems All Other Systems Reviewed And Are Negative: Yes Genitourinary: Positive: Negative, Vaginal/Penile Pain - cramping. Negative: Dysuria, Hematuria, Frequency, Urgency, Vaginal/Penile Burning, Vaginal/Penile Itching, Vaginal/Penile Discharge, Vaginal/Penile Tenderness Physical Exam Triage Information Reviewed: Yes Appearance: Well-Appearing Vital Signs: Initial Vital Signs Temp 97.7 F 10/17/18 20:45 Pulse 78 10/17/18 20:45 Resp 18 10/17/18 20:45 BP 142/90 10/17/18 20:45 Pulse Ox 100 10/17/18 20:45 Vital Signs Reviewed: Yes ENT Exam: Normal Abdominal Exam: Normal Neurological Exam: Normal Psychological Exam: Normal Complaint Female Dx - Course Course Of Treatment: As she came in concerned that her IUD may be out of place. I explained that we do not have ultrasound at this time of night. I offered to do a pelvic exam to see if I could see the strings but she declined. She is feeling a lot better and wants to try to make it until she can see her CRAPS MANAGER doctor. She is nontoxic in appearance and her vitals are stable but I recommended that she give the emergency department to get the ultrasound and a better evaluation. - Differential Dx/Diagnosis Provider Diagnosis: Pelvic pain Discharge - Sign-Out/Discharge Documenting (check all that apply): Patient Departure All imaging exams completed and their final reports reviewed: No Studies - Discharge Plan Condition: Stable Disposition: HOME-RECOMMEND TO ED Referrals: Navdeep Spence [Primary Care Provider] - Additional Instructions: You should be able to get an ultrasound to check placement in the Emergency Department. - Billing Disposition and Condition Condition: STABLE Disposition: Home-Recommend to ED
== END 2018-10-17 21:14 | disposition home health service (06) ==
LOC: UCEAST 20:33
DX: R10.2 Pelvic and perineal pain (principal); Z97.5 Presence of (intrauterine) contraceptive device; Z87.891 Personal history of nicotine dependence; Z88.5 Allergy status to narcotic agent; Z88.0 Allergy status to penicillin
CPT/HCPCS: 99212; G0463

== ENCOUNTER 2018-10-17 21:34 | Emergency (ER) | payer OTHER ==
--- NOTE | 2018-10-17 22:27 | ED ---
GI/ HPI - HPI Summary HPI Summary: This pt is a 28 y/o female presenting to [facility] to have her IUD checked. Pt reports she has had her IUD for 9 months now. She notes she can't feel the strings/threads of the IUD. Additionally she states having vaginal pain, described as sharp and rated 5/10 in severity. Her pain is aggravated when sitting down to go to the bathroom. Denies any other symptoms. Denies fever, nausea, vomiting, abd pain, vaginal discharge, vaginal bleeding. Pt reports her periods have been regular. - History of Current Complaint Chief Complaint: EDOBProblems Stated Complaint: IUD IS OUT OF PLACE PER PT Hx Obtained From: Patient Hx Last Menstrual Period: 10/03/18 Onset/Duration: Started Hours Ago, Still Present Timing: Lasting Hours Current Severity: Moderate Pain Intensity: 5 Additional Location for Females: Other - vagina Pain Characteristics: Sharp Associated Signs and Symptoms: Negative: Nausea, Vomiting, Fever, Abdominal Pain Additional Signs & Symptoms: Positive: IUD. Negative: Vaginal Bleeding, Vaginal Discharge Aggravating Factor(s): Nothing Alleviating Factor(s): Nothing - Allergy/Home Medications Allergies/Adverse Reactions: Allergies Allergy/AdvReac Type Severity Reaction Status Date / Time oxycodone Allergy Hives Verified 10/17/18 20:50 Penicillins Allergy Hives Verified 10/17/18 20:50 PMH/Surg Hx/FS Hx/Imm Hx Endocrine/Hematology History: Denies: Hx Anticoagulant Therapy, Hx Diabetes, Hx Thyroid Disease Cardiovascular History: Denies: Hx Congestive Heart Failure, Hx Deep Vein Thrombosis, Hx Hypertension , Hx Myocardial Infarction, Hx Pacemaker/ICD Respiratory History: Reports: Hx Sleep Apnea - evaluation 12/2012, Other Respiratory Problems/Disorders - smoker, chronic congestion Denies: Hx Asthma, Hx Chronic Obstructive Pulmonary Disease (COPD), Hx Lung Cancer, Hx Pneumonia, Hx Pulmonary Embolism GI History: Reports: Hx Gall Bladder Disease - lap kassi. Denies: Hx Gastrointestinal Bleed, Hx Ulcer, Hx Urosepsis, Other GI Disorders History: Denies: Hx Kidney Stones, Hx Renal Disease, Other Problems/Disorders Sensory History: Denies: Hx Eye Prosthesis, Hx Legally Blind, Hx Deafness Opthamlomology History: Denies: Hx Eye Prosthesis, Hx Legally Blind Neurological History: Denies: Hx Dementia, Hx Migraine, Hx Seizures, Hx Transient Ischemic Attacks (TIA) Psychiatric History: Reports: Hx Anxiety, Hx Depression Denies: Hx Schizophrenia, Hx Bipolar Disorder - Surgical History Surgery Procedure, Year, and Place: 2010-[facility] - Immunization History Date of Tetanus Vaccine: utd Date of Influenza Vaccine: FALL 2017 Infectious Disease History: No Infectious Disease History: Denies: Hx Clostridium Difficile, Hx Hepatitis, Hx Human Immunodeficiency Virus (HIV), Hx of Known/Suspected MRSA, Hx Shingles, Hx Tuberculosis, Hx Known/ Suspected VRE, Hx Known/Suspected VRSA, History Other Infectious Disease, Traveled Outside the [place] in Last 30 Days - Family History Known Family History: Positive: Cardiac Disease, Hypertension, Diabetes, Respiratory Disease, Other - ovarian CA - Social History Alcohol Use: Occasionally Hx Substance Use: No Substance Use Type: Reports: None Hx Tobacco Use: Yes Smoking Status (MU): Former Smoker Type: Cigarettes Amount Used/How Often: 1/2 PPD Have You Smoked in the Last Year: Yes Review of Systems Negative: Fever Cardiovascular: Negative Respiratory: Negative Genitourinary: Other - POSITIVE: vaginal pain Negative: discharge, other - vaginal bleeding All Other Systems Reviewed And Are Negative: Yes Physical Exam - Summary Physical Exam Summary: VITAL SIGNS: Reviewed. GENERAL: Patient is a well-developed and nourished female who is lying comfortable in the stretcher. Patient is not in any acute respiratory distress. HEAD AND FACE: No signs of trauma. No ecchymosis, hematomas or skull depressions. No sinus tenderness. EYES: PERRLA, EOMI x 2, No injected conjunctiva, no nystagmus. EARS: Hearing grossly intact. Ear canals and tympanic membranes are within normal limits. MOUTH: Oropharynx within normal limits. NECK: Supple, trachea is midline, no adenopathy, no JVD, no carotid bruit, no c- spine tenderness, neck with full ROM. CHEST: Symmetric, no tenderness at palpation LUNGS: Clear to auscultation bilaterally. No wheezing or crackles. CVS: Regular rate and rhythm, S1 and S2 present, no murmurs or gallops appreciated. ABDOMEN: Soft, non-tender. No signs of distention. No rebound no guarding, and no masses palpated. Bowel sounds are normal. : preventative maintenance technician is present as female manager food safety. Pelvic exam: patient has normal vaginal discharge, no odor, no pain, external genitalia is normal. Speculum exam : IUD threads are out of the cervix and in place. EXTREMITIES: FROM in all major joints, no edema, no cyanosis or clubbing. NEURO: Alert and oriented x 3. No acute neurological deficits. Speech is normal and follows commands. SKIN: Dry and warm Triage Information Reviewed: Yes Vital Signs On Initial Exam: Initial Vitals Temp Pulse Resp BP Pulse Ox 97.4 F 70 18 127/75 99 10/17/18 21:44 10/17/18 21:44 10/17/18 21:44 10/17/18 21:44 10/17/18 21:44 Vital Signs Reviewed: Yes Diagnostics - Vital Signs Vital Signs Temp Pulse Resp BP Pulse Ox 10/17/18 21:44 97.4 F 70 18 127/75 99 - Laboratory Lab Statement: Any lab studies that have been ordered have been reviewed, and results considered in the medical decision making process. GIGU Course/Dx - Course Assessment/Plan: Pt is a 28 y/o female presenting to [facility] to have her IUD checked. Pt reports she has had her IUD for 9 months now. She notes she can't feel the strings/threads of the IUD. Additionally she states having vaginal pain , described as sharp and rated 5/10 in severity. Pelvic exam: patient has normal vaginal discharge, no odor, no pain, external genitalia is normal. Speculum exam: IUD threads are out of the cervix and in place. Pt will be discharged home with follow up from her PCP or OBGYN. She was instructed to return to the ED for any worsening or new symptoms. - Diagnoses Provider Diagnoses: IUD (intrauterine device) in place Discharge - Sign-Out/Discharge Documenting (check all that apply): Patient Departure - Discharge home Patient Received Moderate/Deep Sedation with Procedure: No - Discharge Plan Condition: Stable Disposition: HOME Patient Education Materials: Intrauterine Device (DC) Referrals: Navdeep Spence [Primary Care Provider] - Additional Instructions: Please follow up with your primary care provider or OB in 1-2 days. RETURN TO EMERGENCY DEPARTMENT FOR ANY NEW OR WORSENING SYMPTOMS. - Attestation Statements Document Initiated by Scribe: Yes Documenting Scribe: Karli Bolaños Provider For Whom Scribe is Documenting (Include Credential): Laci Fitzpatrick MD Scribe Attestation: Karli Solitario, scribed for Laci Fitzpatrick MD on 10/17/18 at 2334. Status of Scribe Document: Ready
[2018-10-17 23:58] VITALS: BP 117/62
== END 2018-10-17 23:57 | disposition home or self-care (01) ==
LOC: ED 21:34
DX: Z97.5 Presence of (intrauterine) contraceptive device (principal); Z87.891 Personal history of nicotine dependence
CPT/HCPCS: 99282

== ENCOUNTER 2019-01-30 18:07 | Emergency (ER) | payer OTHER ==
[2019-01-30 18:34] VITALS: BP 112/73
--- NOTE | 2019-01-30 18:44 | UC ---
Throat Pain/Nasal Joselo HPI - HPI Summary HPI Summary: Patient is a 28yo female presenting with daughter for sore throat x4 days. States 4 other children at home are currently being treated for strep throat. Denies congestion, cough, ear pain. Denies fever, chills, headache. Denies n/v/ d. Denies SOB and wheezing. - History of Current Complaint Chief Complaint: UCRespiratory Stated Complaint: sore THROAT Hx Obtained From: Patient Hx Last Menstrual Period: 10/03/18 Onset/Duration: Gradual Onset, Lasting Days Severity: Moderate Pain Intensity: 5 Pain Scale Used: 0-10 Numeric - Allergies/Home Medications Allergies/Adverse Reactions: Allergies Allergy/AdvReac Type Severity Reaction Status Date / Time oxycodone Allergy Hives Verified 01/30/19 18:34 Penicillins Allergy Hives Verified 01/30/19 18:34 Home Medications: Home Medications Ibuprofen 400 mg PO 01/30/19 [History] PMH/Surg Hx/FS Hx/Imm Hx Previously Healthy: Yes Other History Of: Negative For: HIV, Hepatitis B, Hepatitis C, Anticoagulant Therapy - Surgical History Surgical History: Yes Surgery Procedure, Year, and Place: 2010- [facility] - Family History Known Family History: Positive: Cardiac Disease, Hypertension, Diabetes, Respiratory Disease, Other - ovarian CA - Social History Alcohol Use: Occasionally Substance Use Type: None Smoking Status (MU): Former Smoker Type: Cigarettes Amount Used/How Often: 1/2 PPD Have You Smoked in the Last Year: Yes When Did the Patient Quit Smoking/Using Tobacco: 09/2013 Household Exposure Type: Cigarettes - Immunization History Most Recent Influenza Vaccination: 01/02/16 Most Recent Tetanus Shot: unsure Most Recent Pneumonia Vaccination: unknown Review of Systems All Other Systems Reviewed And Are Negative: Yes Constitutional: Positive: Negative. Negative: Fever, Chills, Fatigue Skin: Positive: Negative Eyes: Positive: Negative ENT: Positive: Sore Throat. Negative: Ear Ache, Nasal Discharge, Sinus Congestion, Sinus Pain/Tenderness Respiratory: Positive: Negative. Negative: Shortness Of Breath, Cough Cardiovascular: Positive: Negative. Negative: Palpitations, Chest Pain Gastrointestinal: Positive: Negative. Negative: Abdominal Pain, Vomiting, Diarrhea, Nausea Musculoskeletal: Positive: Negative Neurological: Positive: Negative. Negative: Headache Physical Exam Triage Information Reviewed: Yes Appearance: Well-Appearing, No Pain Distress, Well-Nourished Vital Signs: Initial Vital Signs Temp 97.5 F 01/30/19 18:30 Pulse 78 01/30/19 18:30 Resp 18 01/30/19 18:30 BP 112/73 01/30/19 18:30 Pulse Ox 96 01/30/19 18:30 Lab Results 01/30/19 Range/Units 18:44 Group A Strep Rapid Negative (Negative) Eyes: Positive: Conjunctiva Clear ENT: Positive: Hearing grossly normal, Pharyngeal erythema, TMs normal, Tonsillar swelling, Uvula midline. Negative: Nasal congestion, Nasal drainage, TM bulging, TM dull, TM red, Tonsillar exudate, Trismus, Muffled voice, Hoarse voice, Sinus tenderness Neck exam: Normal Neck: Positive: Supple, Nontender, No Lymphadenopathy Respiratory Exam: Normal Respiratory: Positive: Lungs clear, Normal breath sounds, No respiratory distress Cardiovascular Exam: Normal Cardiovascular: Positive: RRR Neurological: Positive: Alert Psychological: Positive: Age Appropriate Behavior Throat Pain/Nasal Course/Dx - Course Course Of Treatment: Discussed patient's negative strep test result and informed her that I will still treat with antibiotic based on history of strep exposure. Patient given prescription for cefdinir due to penicillin allergy in the past. Patient has taken cephalopsorins in the past without issues. Patient voiced understanding and agreed to the treatment plan. - Differential Dx/Diagnosis Provider Diagnosis: Strep throat exposure, Acute sore throat Discharge ED - Sign-Out/Discharge Documenting (check all that apply): Patient Departure All imaging exams completed and their final reports reviewed: No Studies - Discharge Plan Condition: Stable Disposition: HOME Prescriptions: Cefdinir cap* [Cefdinir 300 MG cap (NF)] 300 mg PO BID #14 cap Patient Education Materials: Strep Throat (ED) Referrals: [facility] [Outside] - If Needed [facility] [facility]FERRAL [Outside] - If Needed Additional Instructions: As discussed, you tested negative for strep throat today, but you are still being treated since you have been exposed to strep. Take Cefdinir as prescribed for the treatment of strep throat. You may take ibuprofen and/or tylenol as directed for fever and pain relief. You may use over the counter throat sprays or lozenges for symptomatic relief. Get plenty of rest and fluids. Throw your toothbrush away and replace it with a new one. Follow up with your PCP or the referrals listed below if your symptoms do not resolve within 10 days. - Billing Disposition and Condition Condition: STABLE Disposition: Home - Attestation Statements Provider Attestation: I was available for consult. This patient was seen by the NATASHA. The patient was not presented to, seen by, or examined by me. -Radha
== END 2019-01-30 19:17 | disposition home or self-care (01) ==
LOC: UCEAST 18:07
DX: J02.9 Acute pharyngitis, unspecified (principal); Z88.5 Allergy status to narcotic agent; Z88.0 Allergy status to penicillin; Z87.891 Personal history of nicotine dependence
CPT/HCPCS: 87651; 99212; G0463

== ENCOUNTER 2019-03-11 17:10 | Emergency (ER) | payer OTHER ==
[2019-03-11 17:25] VITALS: BP 130/80
[2019-03-11] MEDS ORDERED: Ibuprofen TAB* 600 MG PO ONE (17:34)
[2019-03-11 18:00] LABS: Influenza A Molecular NEGATIVE (Negative); Influenza B Molecular NEGATIVE (Negative)
--- NOTE | 2019-03-11 18:19 | UC ---
FLU HPI - HPI Summary HPI Summary: 28-year-old female who has had a sore throat over the past 3 days and then yesterday developed flulike symptoms with headache, fever, chills and body aches. 3 of her 5 children have documented strep throat. The patient took a leftover amoxicillin last evening even though she is allergic penicillin. She had no adverse reaction from that. - History of Current Complaint Chief Complaint: UCRespiratory Stated Complaint: aches, SORE THROAT, AND FEVER Time Seen by Provider: 03/11/19 17:32 Hx Obtained From: Patient Hx Last Menstrual Period: 1 month ago (has IUD) ?: No Onset/Duration: Gradual Onset Severity Currently: Mild Severity Initially: Moderate Pain Intensity: 8 Associated Signs & Symptoms: Positive: Fever, Sore Throat, Nasal Congestion, Headache - Allergy/Home Medications Allergies/Adverse Reactions: Allergies Allergy/AdvReac Type Severity Reaction Status Date / Time oxycodone Allergy Hives Verified 03/11/19 17:25 Penicillins Allergy Hives Verified 03/11/19 17:25 PMH/Surg Hx/FS Hx/Imm Hx Previously Healthy: Yes Psychological History: Anxiety Other History Of: Negative For: HIV, Hepatitis B, Hepatitis C, Anticoagulant Therapy - Surgical History Surgical History: Yes Surgery Procedure, Year, and Place: 2010-[facility] - Family History Known Family History: Positive: Cardiac Disease, Hypertension, Diabetes, Respiratory Disease, Other - ovarian CA - Social History Occupation: Employed Full-time Lives: With Family Alcohol Use: Occasionally Substance Use Type: None Smoking Status (MU): Former Smoker Type: Cigarettes Amount Used/How Often: 1/2 PPD Have You Smoked in the Last Year: Yes When Did the Patient Quit Smoking/Using Tobacco: 09/2013 Household Exposure Type: Cigarettes - Immunization History Most Recent Influenza Vaccination: 01/02/16 Most Recent Tetanus Shot: unsure Most Recent Pneumonia Vaccination: unknown Review of Systems All Other Systems Reviewed And Are Negative: Yes Constitutional: Positive: Fever, Chills, Fatigue ENT: Positive: Sore Throat, Nasal Discharge Musculoskeletal: Positive: Myalgia Neurological: Positive: Headache - Mild headache. Is Patient Immunocompromised?: No Physical Exam Triage Information Reviewed: Yes Appearance: No Pain Distress, Well-Nourished, Ill-Appearing - Mildly ill appearing. Vital Signs: Initial Vital Signs Temp 101 F 03/11/19 17:21 Pulse 97 03/11/19 17:21 Resp 16 03/11/19 17:21 BP 130/80 03/11/19 17:21 Pulse Ox 99 03/11/19 17:21 Vital Signs Reviewed: Yes Eyes: Positive: Conjunctiva Clear ENT: Positive: Pharyngeal erythema, Nasal drainage, TMs normal, Tonsillar swelling, Uvula midline. Negative: Tonsillar exudate, Trismus, Muffled voice, Hoarse voice Neck: Positive: Supple, Nontender, No Lymphadenopathy Respiratory: Positive: Lungs clear, Normal breath sounds, No respiratory distress, No accessory muscle use Cardiovascular: Positive: RRR, No Murmur, Pulses Normal, Brisk Capillary Refill Musculoskeletal Exam: Normal Neurological Exam: Normal Psychological Exam: Normal Skin Exam: Normal Flu Course/Dx - Course Course Of Treatment: I did not do a rapid strep because patient has taken a dose of amoxicillin. Rapid flu test was negative. I'm going to treat the patient for probable strep pharyngitis because 3 of her 5 children have strep right now the patient has a fever, sore throat, red tonsils. She is to increase fluids, rest and take Tylenol for fever or Motrin and change her toothbrush in 24 hours. - Differential Dx/Diagnosis Provider Diagnosis: Tonsillitis, Flu-like symptoms Discharge ED - Sign-Out/Discharge Documenting (check all that apply): Patient Departure All imaging exams completed and their final reports reviewed: No Studies - Discharge Plan Condition: Fair Disposition: HOME Prescriptions: Azithromyxin RJ (NF) [Z-Rj (Zithromax) 250 mg tabs #6] 2 tab PO .TODAY, THEN 1 DAILY #6 tab Patient Education Materials: Tonsillitis (ED) Forms: *Work Release Referrals: [facility] [Outside] No Primary Care Phys,NOPCP [Primary Care Provider] - Additional Instructions: Increase fluids, rest, Tylenol every 4 hours and Motrin every 8 hours for pain or fever. Change her toothbrush in 24 hours. Follow-up with your primary care provider if no improvement in 4 or 5 days. - Billing Disposition and Condition Condition: FAIR Disposition: Home
== END 2019-03-11 18:16 | disposition home or self-care (01) ==
LOC: UCEAST 17:10
DX: J03.90 Acute tonsillitis, unspecified (principal); M79.10 Myalgia, unspecified site; R68.83 Chills (without fever); R53.83 Other fatigue; R09.89 Other specified symptoms and signs involving the circulatory and respiratory systems; Z88.0 Allergy status to penicillin; Z88.5 Allergy status to narcotic agent; Z87.891 Personal history of nicotine dependence
CPT/HCPCS: 99212; A9270-GY; G0463

== ENCOUNTER 2019-06-13 17:27 | Emergency (ER) | payer OTHER ==
--- OUTSIDE RECORDS SUMMARY | 2019-06-13 17:32 | XMS REPORT | Summary of Care ---
:1990 Author Organization [facility] Address [address] [facility] [address] [address] Care Team Providers Name Role Phone None, [place] Primary Care Provider Unavailable Reason for Referral Refer to Department Only (Routine) Status Reason Specialty Diagnoses / Referred By Referred To Procedures Contact Contact Pending Review DERMATOLOGY / Diagnoses Sebaceous cyst of left axilla Rocky Gonsalez NP [address] [place] [address] Reason for Visit Reason Comments Establish Care discuss fluid on R ankle and foot x5 days, holes in both armpits for months Encounter Details Date Type Department Care Team Description 06/09/2019 Office Visit [facility] Tara Gonsalez, Acute gout involving toe of right foot, unspecified cause (Primary Dx); Practice [employer] Anxiety; [address] [facility] Sebaceous cyst of left axilla; [place] [address] Screening for diabetes mellitus; [phone] Screening for lipid disorders; Encounter to establish care Allergies Active Allergy Reactions Severity Noted Date Comments Penicillins Hives 06/09/2019 Oxycodone-Acetaminophen Rash 06/09/2019 documented as of this encounter (statuses as of 06/09/2019) Medications Medication Sig Dispensed Refills Start Date End Date Status ALPRAZolam (XANAX PO) Take by mouth 0 Active NEEDED. Levonorgestrel by Intrauterine 0 11/20/2018 Active (MIRENA, 52 MG,) 20 route. Indications: MCG/24HR Intrauterine Control IUDIndications: Treatment Contraceptive Therapy indomethacin Take 1 Cap by mouth 60 Cap 0 06/09/2019 Active (INDOCIN) 50 MG Oral THREE TIMES DAILY. CapIndications: Acute gout involving toe of right foot, unspecified cause documented as of this encounter (statuses as of 06/09/2019) Active Problems Problem Noted Date Sleep apnea Overview: Has CPAP but not using. Obesity Asthma Overview: No meds. Exercise induced only. Anxiety Overview: Xanax prn given by women's health provider. documented as of this encounter (statuses as of 06/09/2019) Resolved Problems Problem Noted Date Resolved Date Lyme disease 06/09/2019 Overview: At end of last . Treated with antibiotics. documented as of this encounter (statuses as of 06/09/2019) Social History Tobacco Use Types Packs/Day Years Used Date Former Smoker Cigarettes 05 03 2004 - 2016 Smokeless Tobacco: Never Used Alcohol Use Drinks/Week oz/Week Comments Yes Alcohol Habits Answer Date Recorded How often do you have a drink containing alcohol? 2-4 times a month 2019 How many drinks containing alcohol do you have on a 5 or 6 06/09/2019 typical day when you are drinking? How often do you have six or more drinks on one Less than monthly 06/09/2019 occasion? Social Isolation Answer Date Recorded In a typical week, how many times do you talk on Not asked the phone with family, friends, or neighbors? How often do you get together with friends or Not asked relatives? How often do you attend oriental orthodox or rastafarian Not asked services? Do you belong to any clubs or organizations such as Not asked oriental orthodox groups, unions, fraternal or athletic groups, or school groups? How often do you attend meetings of the clubs or Not asked organizations you belong to? Are you now , , , , Living with partner 2019 never or living with a partner? Intimate Partner Violence Answer Date Recorded Within the last year, have you been afraid of your partner or No 06/09/2019 ex-partner? Within the last year, have you been humiliated or emotionally No 06/09/2019 abused in other ways by your partner or ex-partner? Within the last year, have you been kicked, hit, slapped, or No 06/09/2019 otherwise physically hurt by your partner or ex-partner? Within the last year, have you been raped or forced to have any No 06/09/2019 kind of sexual activity by your partner or ex-partner? Sex Assigned at Date Recorded Not on file documented as of this encounter Last Filed Vital Signs Vital Sign Reading Time Taken Comments Blood Pressure 120/58 06/09/2019 3:31 PM EST Pulse 86 06/09/2019 3:31 PM EST Temperature 37.6 06/09/2019 3:31 PM EST C (99.6 F) Respiratory Rate - - Oxygen Saturation 99% 06/09/2019 3:31 PM EST Inhaled Oxygen Concentration - - Weight 112.5 kg (248 lb) 06/09/2019 3:31 PM EST Height 162.6 cm (5' 4") 06/09/2019 3:31 PM EST Body Mass Index 42.57 06/09/2019 3:31 PM EST documented in this encounter Patient Instructions Patient InstructionsTara Gonsalez NP - 06/09/2019 3:20 PM ESTReferral to derm - can work on scheduling this on your way out. Xray of foot today Blood work - fasting labs - schedule this. Indomethacin 50 mg three times daily for foot pain - take with food, do not take with other nsaids (no ibuprofen). Call or return if symptoms worsen or fail to improve. Welcome to [facility]. I encourage you to sign up for e[employer] for on-line access. DIET AND EXERCISE: Exercise is recommended 150 minutes weekly: 30 minutes five days a week of moderate exercise such as walking. In addition is it recommended you have two days weekly of working all your major muscle groups (arms, legs) such as with weight lifting or other exercise. I recommend a well balanced healthy diet, portion control, drink plenty of fluids. The Mediterranean diet is an excellent diet. Be sure to get adequate sleep at night, 8 hours. If you cannot make an appointment please call to cancel 24 hours in advance so that appointment timecan be made available for another person. documented in this encounter Progress Notes Tara Gonsalez NP - 06/09/2019 3:20 PM EST PATIENT: Tess Sweet : 1990 DATE OF SERVICE: 06/09/2019 Subjective SUBJECTIVE: Tess Sweet is a 28-y.o. female here to establish care. Prior PCP in ovid. Current Concerns: 1) increased anxiety since getting Mirena IUD in November. [facility] provider gave her rx for xanax she takes prn - 15 pills since November. 2) Getting "holes" in her armpits, will start opening up and draining while she is on her period, inbetween periods they close up and dont bother. This started after getting the Mirena IUD. Sister has similar problems. 3) Ankle right, feeling fluid gathering bettwen big toe and 2nd toe, feeling it when sitting or moving, now starting to also feel in her ankle. She can't see it, no swelling, but feels when stepping down. Painful in the morning when first getting up, then gets better. Still painful when stepping down. No known injury to the area. Treatments: none. Chronic Conditions: Specialists: Women's Health: Dr. Flynn at [facility]. And see Emiline there. Health Maintenance: LMP: Currently. Contraception: Mirena IUD placed November 2018. Pap (21-65): March 2017 - [facility]. Past Medical History: Diagnosis Date ? Anxiety ? Asthma ? Lyme disease ? Obesity ? Sleep apnea Family History Problem Relation Age of Onset ? Cancer Mother skin ? High Blood Pressure Mother ? Heart Mother stents ? Cancer Father skin ? Anxiety Father ? Other Diagnosed Disorder Sister blood clots ? No Known Problems Brother ? No Known Problems Daughter ? No Known Problems Son ? Thyroid Sister hypo ? Thyroid Sister hypo ? No Known Problems Sister ? No Known Problems Sister ? No Known Problems Brother ? No Known Problems Daughter ? No Known Problems Daughter ? No Known Problems Son Current Outpatient Medications Medication Sig ? ALPRAZolam (XANAX PO) Take by mouth NEEDED. ? indomethacin (INDOCIN) 50 MG Oral Cap Take 1 Cap by mouth THREE TIMES DAILY. ? Levonorgestrel (MIRENA, 52 MG,) 20 MCG/24HR Intrauterine IUD by Intrauterine route. Indications: Control Treatment No current facility-administered medications for this visit. Allergies Allergen Reactions ? Penicillins Hives ? Percocet [Oxycodone-Acetaminophen] Rash Social History Socioeconomic History ? Marital status: Spouse name: Not on file ? Number of children: Not on file ? Years of education: Not on file ? Highest education level: Not on file Occupational History ? Not on file Social Needs ? Financial resource strain: Not on file ? Food insecurity Worry: Not on file Inability: Not on file ? Transportation needs Medical: Not on file Non-medical: Not on file Tobacco Use ? Smoking status: Former Smoker Packs/day: 1.00 Years: 12.00 Pack years: 12.00 Types: Cigarettes Start date: 2004 Last attempt to quit: 2017 Years since quittin.1 ? Smokeless tobacco: Never Used Substance and Sexual Activity ? Alcohol use: Yes Frequency: 2-4 times a month Drinks per session: 5 or 6 Binge frequency: Less than monthly ? Drug use: Never ? Sexual activity: Yes Partners: Male control/protection: I.U.D. Comment: monogomous. Mirena IUD (November 2018) Lifestyle ? Physical activity Days per week: Not on file Minutes per session: Not on file ? Stress: Not on file Relationships ? Social connections Talks on phone: Not on file Gets together: Not on file Attends rastafarian service: Not on file Active member of club or organization: Not on file Attends meetings of clubs or organizations: Not on file Relationship status: Living with partner ? Intimate partner violence Fear of current or ex partner: No Emotionally abused: No Physically abused: No Forced sexual activity: No Other Topics Concern ? Not on file Social History Narrative Lives with and 5 children. Just quit her job last week - not working currently. REVIEW OF SYSTEMS: Review of Systems Constitutional: Negative for chills, fever and malaise/fatigue. Musculoskeletal: Positive for joint pain (see hpi). Skin: See hpi Neurological: Negative for dizziness and headaches. Psychiatric/Behavioral: Negative for depression, substance abuse and suicidal ideas. The patient is nervous/anxious. The patient does not have insomnia. Objective OBJECTIVE: BP 120/58 (BP Location: Right arm, Patient Position: Sitting) | Pulse 86 | Temp 99.6 F (37.6 C) (Tympanic) | Ht 5' 4" (1.626 m) | Wt 248 lb ( 112.5 kg) | SpO2 99% | BMI 42.57 kg/m Physical Exam Vitals signs and nursing note reviewed. Constitutional: General: She is not in acute distress. Appearance: Normal appearance. She is well-developed. She is obese. Cardiovascular: Rate and Rhythm: Normal rate and regular rhythm. Heart sounds: Normal heart sounds. No murmur. No friction rub. No gallop. Pulmonary: Effort: Pulmonary effort is normal. No respiratory distress. Breath sounds: Normal breath sounds. Musculoskeletal: Left ankle: She exhibits normal range of motion, no swelling, no ecchymosis, no deformity, no laceration and normal pulse. Tenderness. Lateral malleolus tenderness found. No medial malleolus tenderness found. Achilles tendon exhibits no pain. Left foot: Normal range of motion and normal capillary refill. Tenderness and swelling present. No bony tenderness, crepitus, deformity or laceration. Feet: Skin: Comments: 3-4 tunneling wounds in left axilla, no drainage or swelling, mild redness. Neurological: Mental Status: She is alert. Psychiatric: Mood and Affect: Mood and affect normal. Speech: Speech normal. Behavior: Behavior normal. Behavior is cooperative. ASSESSMENT: ICD-9-CM ICD-10-CM 1. Acute gout involving toe of right foot, unspecified cause 274.01 M10.9 XR FOOT MIN 3 VIEWS RIGHT(STANDARD) URIC ACID indomethacin (INDOCIN) 50 MG Oral Cap 2. Anxiety 300.00 F41.9 3. Sebaceous cyst of left axilla 706.2 L72.3 REFER TO DERMATOLOGY CBC NO DIFFERENTIAL 4. Screening for diabetes mellitus V77.1 Z13.1 COMPREHENSIVE METABOLIC PANEL 5. Screening for lipid disorders V77.91 Z13.220 LIPID PROFILE 6. Encounter to establish care V65.8 Z76.89 Plan PLAN: 1. Anxiety She is thinking about having mirena IUD removed - [facility] ([facility]). 2. Acute gout involving toe of right foot, unspecified cause Xray and check uric acid. Indocin tid prn. - XR FOOT MIN 3 VIEWS RIGHT (STANDARD); Future - URIC ACID; Future - indomethacin (INDOCIN) 50 MG Oral Cap; Take 1 Cap by mouth THREE TIMES DAILY. Dispense: 60 Cap; Refill: 0 3. Sebaceous cyst of left axilla Derm referral No s&s of current infection. - REFER TO DERMATOLOGY; Future - CBC NO DIFFERENTIAL; Future 4. Screening for diabetes mellitus Requesting fasting labs. - COMPREHENSIVE METABOLIC PANEL; Future 5. Screening for lipid disorders Requesting fasting labs. - LIPID PROFILE; Future 6. Encounter to establish care No prior PCP. Author: Tara Gonsalez NP 06/09/2019 16:41 documented in this encounter Plan of Treatment Date Type Specialty Care Team Description 06/16/2019 Lab Internal Medicine Name Type Priority Associated Diagnoses Date/Time XR FOOT MIN 3 VIEWS Imaging Routine Acute gout involving toe 06/09/2019 4: 15 PM EST RIGHT (STANDARD) of right foot, unspecified cause Name Type Priority Associated Diagnoses Order Schedule XR FOOT MIN 3 VIEWS RIGHT Imaging Routine Acute gout involving Expected: (STANDARD) toe of right foot, 06/09/2019, Expires: unspecified cause 06/08/2020 CBC NO DIFFERENTIAL Lab Routine Sebaceous cyst of left Expected: 06/09/2019 axilla (Approximate), Expires: 06/09/2020 COMPREHENSIVE METABOLIC Lab Routine Screening for diabetes Expected: 2019 PANEL mellitus (Approximate), Expires: 06/09/2020 LIPID PROFILE Lab Routine Screening for lipid Expected: 06/09/2019 disorders (Approximate), Expires: 06/09/2020 URIC ACID Lab Routine Acute gout involving Expected: 06/09/2019 toe of right foot, (Approximate), unspecified cause Expires: 06/09/2020 Name Type Priority Associated Diagnoses Order Schedule REFER TO DERMATOLOGY Referral Routine Sebaceous cyst of left Expected: , axilla Expires: 06/09/2020 Health Maintenance Due Date Last Done Comments PNEUMOCOCCAL 0-64 YRS (1 of 1 08/15/1997 - PPSV23) DTaP/Tdap/Td Vaccines (1 - 08/15/2002 Tdap) HIV SCREENING 08/15/2006 PAP SMEAR 08/15/2012 INFLUENZA VACCINE (#1) 2018 DEPRESSION SCREENING 06/09/2020 06/09/2019, 06/09/2019 HEPATITIS A IMMUNIZATION Aged Out No longer eligible based SERIES on patient's age to complete this topic HPV IMMUNIZATION SERIES Aged Out No longer eligible based on patient's age to complete this topic MENINGOCOCCAL VACCINE IMM Aged Out No longer eligible based on patient's age to complete this topic documented as of this encounter Results Not on filedocumented in this encounter Visit Diagnoses Diagnosis Anxiety Anxiety state, unspecified Acute gout involving toe of right foot, unspecified cause Sebaceous cyst of left axilla Screening for diabetes mellitus Screening for lipid disorders Encounter to establish care Other reasons for seeking consultation documented in this encounter
--- NOTE | 2019-06-13 17:41 | UC ---
Throat Pain/Nasal Joselo HPI - HPI Summary HPI Summary: Tonsills swollen throat sore---feeling bad erin thinks her child has strep and gave it to her - History of Current Complaint Chief Complaint: UCRespiratory Stated Complaint: SORE THROAT Time Seen by Provider: 06/13/19 17:36 Hx Obtained From: Patient Hx Last Menstrual Period: 1 month ago (has IUD) ?: No Onset/Duration: Sudden Onset, Lasting Days - 1 Severity: Moderate Cough: None - Allergies/Home Medications Allergies/Adverse Reactions: Allergies Allergy/AdvReac Type Severity Reaction Status Date / Time oxycodone Allergy Hives Verified 06/13/19 17:57 Penicillins Allergy Hives Verified 06/13/19 17:57 Home Medications: Home Medications ALPRAZolam [Xanax] 0.25 mg PO SEE INSTRUCTIONS 10/17/18 [History Confirmed 06/13] Levonorgestrel (Iud) [Mirena IUD] 20 mcg IU ONCE 10/17/18 [History Confirmed ] Azithromycin TAB* [Zithromax TAB (Z-RJ) 250 mg #6 tabs] 250 mg PO DAILY #4 tab 06/13/19 [Rx] Indomethacin CAP* [Indocin CAP*] 50 mg PO Q6HR 06/13/19 [History Confirmed 06/13] PMH/Surg Hx/FS Hx/Imm Hx Previously Healthy: Yes Other History Of: Negative For: HIV, Hepatitis B, Hepatitis C, Anticoagulant Therapy - Surgical History Surgical History: Yes Surgery Procedure, Year, and Place: 2010-[facility] - Family History Known Family History: Positive: Cardiac Disease, Hypertension, Diabetes, Respiratory Disease, Other - ovarian CA - Social History Occupation: Unemployed Lives: With Family Alcohol Use: Occasionally Substance Use Type: None Smoking Status (MU): Former Smoker Type: Cigarettes Amount Used/How Often: 1/2 PPD Have You Smoked in the Last Year: Yes When Did the Patient Quit Smoking/Using Tobacco: 09/2013 Household Exposure Type: Cigarettes - Immunization History Most Recent Influenza Vaccination: 01/02/16 Most Recent Tetanus Shot: unsure Most Recent Pneumonia Vaccination: unknown Review of Systems All Other Systems Reviewed And Are Negative: Yes Constitutional: Positive: Chills, Fatigue Skin: Positive: Negative Eyes: Positive: Negative ENT: Positive: Sore Throat Respiratory: Positive: Negative Cardiovascular: Positive: Negative Gastrointestinal: Positive: Negative Genitourinary: Positive: Negative Motor: Positive: Negative Neurovascular: Positive: Negative Musculoskeletal: Positive: Negative Neurological/Mental Status: Positive: Negative Psychological: Positive: Negative Is Patient Immunocompromised?: No Physical Exam Triage Information Reviewed: Yes Appearance: Well-Appearing, No Pain Distress, Obese Vital Signs Reviewed: Yes Eye Exam: Normal Eyes: Positive: Conjunctiva Clear ENT Exam: Normal ENT: Positive: Normal ENT inspection, Hearing grossly normal, Pharyngeal erythema, TMs normal, Tonsillar swelling, Tonsillar exudate, Uvula midline. Negative: Nasal congestion, Trismus, Muffled voice, Hoarse voice, Dental tenderness, Sinus tenderness Dental Exam: Normal Neck exam: Normal Neck: Positive: Supple, Nontender, No Lymphadenopathy Respiratory Exam: Normal Respiratory: Positive: Chest non-tender, Lungs clear, Normal breath sounds, No respiratory distress, No accessory muscle use Cardiovascular Exam: Normal Cardiovascular: Positive: RRR, No Murmur, Pulses Normal, Brisk Capillary Refill Musculoskeletal Exam: Normal Musculoskeletal: Positive: Strength Intact, ROM Intact, No Edema Neurological Exam: Normal Neurological: Positive: Alert, Muscle Tone Normal Psychological Exam: Normal Skin Exam: Normal Diagnostics - Laboratory Lab Results: RST+ Throat Pain/Nasal Course/Dx - Course Course Of Treatment: Zithromax, tylenol, ibuprofen increase fluids follow with pcp prn - Differential Dx/Diagnosis Provider Diagnosis: Strep pharyngitis Discharge ED - Sign-Out/Discharge Documenting (check all that apply): Patient Departure All imaging exams completed and their final reports reviewed: No Studies - Discharge Plan Condition: Stable Disposition: HOME Prescriptions: Azithromycin TAB* [Zithromax TAB (Z-RJ) 250 mg #6 tabs] 250 mg PO DAILY #4 tab Patient Education Materials: Strep Throat (ED) Referrals: Care [facility] [Outside] - If Needed - Billing Disposition and Condition Condition: STABLE Disposition: Home
[2019-06-13 17:56] VITALS: BP 119/67
[2019-06-13] MEDS ORDERED: Azithromycin TAB* 250 MG PO ONE (18:10)
== END 2019-06-13 18:41 | disposition home or self-care (01) ==
LOC: UCEAST 17:27
DX: J02.0 Streptococcal pharyngitis (principal); R53.83 Other fatigue; Z88.5 Allergy status to narcotic agent; Z88.0 Allergy status to penicillin; Z87.891 Personal history of nicotine dependence
CPT/HCPCS: 87651; 99212; A9270-GY; G0463